=== PATIENT | female | born 1950 | race Caucasian/White ===

== ENCOUNTER 2016-09-26 09:01 | Outpatient (CLI) | payer MEDICARE, OTHER | END 2016-09-26 09:02 | disposition home or self-care (01) | DX: E78.00 Pure hypercholesterolemia, unspecified (principal); E03.9 Hypothyroidism, unspecified; I10 Essential (primary) hypertension ==

== ENCOUNTER 2016-10-19 15:37 | Outpatient (CLI) | payer MEDICARE, OTHER | END 2016-10-19 15:38 | disposition home or self-care (01) | DX: M47.892 Other spondylosis, cervical region (principal) ==

== ENCOUNTER 2016-10-23 12:15 | Outpatient (CLI) | payer MEDICARE, OTHER | END 2016-10-23 12:16 | disposition home or self-care (01) | DX: Z12.31 Encounter for screening mammogram for malignant neoplasm of breast (principal) ==

== ENCOUNTER 2017-01-20 14:18 | Outpatient (CLI) | payer MEDICARE, OTHER ==
--- NOTE | 2017-01-20 16:32 | Ultrasound Report ---
ULTRASOUND OF LEFT FOREARM: 01/20/2017 CLINICAL INDICATION: Palpable abnormality. TECHNIQUE: Real-time scanning was performed with sales and marketing representative static images obtained. FINDINGS: Ultrasound of the region of the palpable abnormality identified by the patient was perform ed. Unremarkable subcutaneous fat and musculature are seen. No discrete solid or cystic mass is identifie d. No sonographically suspicious findings are appreciated. IMPRESSION: NO SONOGRAPHIC CORRELATE TO THE PALPABLE ABNORMALITY. JOB #: [id number] EXT JOB #:[id number]
== END 2017-01-20 14:19 | disposition home or self-care (01) ==
LOC: DI 14:18
PROVIDERS: ATTEND Physician Assistant Medical
DX: R22.32 Localized swelling, mass and lump, left upper limb (principal)
CPT/HCPCS: 76882

== ENCOUNTER 2018-04-29 09:37 | Outpatient (CLI) | payer MEDICARE, OTHER ==
[2018-04-29 13:12] LABS: BASOPHILS # (AUTO) 0.1 10^3/uL (0.0-0.1); BASOPHILS % (AUTO) 0.9 %; EOSINOPHILS # (AUTO) 0.3 10^3/uL (0.0-0.7); EOSINOPHILS % (AUTO) 4.7 %; HGB - HEMOGLOBIN 14.6 g/dL (12.0-16.0); LYMPHOCYTES % (AUTO) 30.3 %; MEAN CORPUSCULAR HEMOGLOBIN 29.8 pg (27.0-31.0); MEAN CORPUSCULAR HGB CONC 33.8 g/dL (32.0-36.0); MEAN CORPUSCULAR VOLUME 88.1 fL (81.0-99.0); MEAN PLATELET VOLUME 7.9 fL (7.9-10.8); MONOCYTES # (AUTO) 0.5 10^3/uL (0.0-1.0); MONOCYTES % (AUTO) 7.7 %; NEUTROPHILS # (AUTO) 3.8 10^3/uL (1.5-6.6); NEUTROPHILS % (AUTO) 56.4 %; PLT - PLATELET COUNT 358 10^3/uL (130-450); RED BLOOD COUNT 4.91 10^6/uL (4.20-5.40); RED CELL DISTRIBUTION WIDTH 14.1 % (12.0-15.0); WHITE BLOOD COUNT 6.7 x10^3/uL (4.8-10.8)
[2018-04-29 13:45] LABS: ALBUMIN 4.2 g/dL (3.2-5.5); ALBUMIN/GLOBULIN RATIO 1.6 (1.0-2.2); BILIRUBIN,TOTAL 0.6 mg/dL (0.2-1.0); CALCIUM 9.8 mg/dL (8.5-10.3); CREATININE 0.5 mg/dL (0.4-1.0); TOTAL PROTEIN 6.9 g/dL (6.7-8.2)
== END 2018-04-29 09:38 | disposition home or self-care (01) ==
LOC: LAB.WCP 09:37
PROVIDERS: ATTEND Family Medicine
DX: M79.604 Pain in right leg (principal)
CPT/HCPCS: 36415; 80053; 85025; 85379

== ENCOUNTER 2018-04-29 13:38 | Emergency (ER) | payer MEDICARE, OTHER ==
--- NOTE | 2018-04-29 15:39 | ED Physician Documentation ---
PD HPI LOWER EXT INJURY - Stated complaint Stated Complaint: RT LEG PX/DR. JOHNSON SENT/ELEVATED D DIMER - Chief complaint Chief Complaint: General - History obtained from History obtained from: Patient PD PAST MEDICAL HISTORY - Past Medical History Cardiovascular: Hypertension, High cholesterol Endocrine/Autoimmune: HyPOthyroidism Psych: Anxiety Musculoskeletal: Osteoarthritis - Past Surgical History Past Surgical History: Yes General: Cholecystectomy Ortho: ACL reconstruction, Shoulder arthroplasty HEENT: Tonsil/Adenoidectomy - Present Medications Home Medications: Ambulatory Orders Medication Instructions Recorded Confirmed Aspirin [Aspir 81] 81 mg PO DAILY 06/17/14 06/17/14 Fenofibrate Nanocrystallized 145 mg PO DAILY 06/17/14 06/17/14 [Tricor] Gluc Kellogg/Chondro Kellogg A/Vit C/Mn 1,500 mg PO DAILY 06/17/14 06/17/14 [Glucosamine 1,500 Complex Cp] Levomefolate/Algal Oil 7.5 mg PO DAILY 06/17/14 06/17/14 [Deplin-Algal Oil 7.5 mg Cap] Levothyroxine Sodium [Levoxyl] 100 mcg PO DAILY 06/17/14 06/17/14 Verapamil [Calan] 240 mg PO BID 06/17/14 06/17/14 oxyCODONE [Roxicodone] 5 g PO BID PRN 06/17/14 06/17/14 Baclofen 04/29/18 04/29/18 Melatonin 04/29/18 Progesterone,Micronized 04/29/18 [Progesterone] Zolpidem [Ambien] 04/29/18 - Allergies Allergies/Adverse Reactions: Allergies Allergy/AdvReac Type Severity Reaction Status Date / Time Sulfa (Sulfonamide Allergy Hives Verified 04/29/18 14:03 Antibiotics) dexamethasone AdvReac Anxiety Verified 04/29/18 14:03 eszopiclone [From Lunesta] AdvReac Anxiety Verified 04/29/18 14:03 propranolol AdvReac Anxiety Verified 04/29/18 14:03 quetiapine fumarate * AdvReac Anxiety Verified 04/29/18 14:03 [From Seroquel] topiramate [From Topamax] AdvReac Anxiety Verified 04/29/18 14:03 - Social History Does the pt smoke?: No Smoking Status: Never smoker Does the pt drink ETOH?: No Does the pt have substance abuse?: No - Immunizations Immunizations are current?: Yes - POLST Patient has POLST: Yes Results - Vitals Vitals: Vital Signs - 24 hr 04/29/18 04/29/18 14:00 15:43 Temperature 37.2 C Heart Rate 78 68 Respiratory 16 16 Rate Blood Pressure 148/80 H 139/82 H O2 Saturation 97 99 Oxygen O2 Source Room air Departure - Departure Disposition: 66 [facility] DC/Xfer Clinical Impression: Closed right hip fracture Qualifiers: Encounter type: initial encounter Qualified Code(s): S72.001A - Fracture of unspecified part of neck of right femur, initial encounter for closed fracture Condition: Good
--- NOTE | 2018-04-29 16:29 | ED Physician Documentation ---
PD HPI LOWER EXT INJURY - Stated complaint Stated Complaint: RT LEG PX/DR. JOHNSON SENT/ELEVATED D DIMER - Chief complaint Chief Complaint: General - History obtained from History obtained from: Patient - History of Present Illness PD HPI LOW EXT INJURY LOCATION: Right, Thigh (noted some pain and tenderness lateral distal thigh. Seen by PMD and had office D-demier test that was elevated. Sent to ER for U/S.) Type of injury: No: Fall, Twist, Blunt / blow Timing - onset: Yesterday Timing - duration: Days (2) Timing - details: Gradual onset Worsened by: Palpating. No: Moving Associated symptoms: No: Weakness, Numbness, Swelling Review of Systems Constitutional: denies: Fever, Chills Cardiac: denies: Chest pain / pressure, Palpitations Respiratory: denies: Dyspnea, Cough GI: denies: Nausea, Vomiting Skin: reports: Other (hiostory of varicose veins on legs). denies: Rash, Lesions PD PAST MEDICAL HISTORY - Past Medical History Cardiovascular: Hypertension, High cholesterol Endocrine/Autoimmune: HyPOthyroidism Psych: Anxiety Musculoskeletal: Osteoarthritis - Past Surgical History Past Surgical History: Yes General: Cholecystectomy Ortho: ACL reconstruction, Shoulder arthroplasty HEENT: Tonsil/Adenoidectomy - Present Medications Home Medications: Ambulatory Orders Medication Instructions Recorded Confirmed Aspirin [Aspir 81] 81 mg PO DAILY 06/17/14 04/29/18 Fenofibrate Nanocrystallized 145 mg PO DAILY 06/17/14 04/29/18 [Tricor] Gluc Kellogg/Chondro Kellogg A/Vit C/Mn 1,500 mg PO DAILY 06/17/14 06/17/14 [Glucosamine 1,500 Complex Cp] Levothyroxine Sodium [Levoxyl] 100 mcg PO DAILY 06/17/14 04/29/18 oxyCODONE [Roxicodone] 5 g PO BID PRN 06/17/14 06/17/14 Baclofen 10 mg PO DAILY 04/29/18 04/29/18 Baclofen [Lioresal] 20 mg PO QPM 04/29/18 04/29/18 Levomefolate/Algal Oil 1 each PO DAILY 04/29/18 04/29/18 [Deplin-Algal Oil 7.5 mg Cap] Lidocaine Patch 5% [Lidoderm Patch] 1 - 3 each TOP DAILY 04/29/18 04/29/18 Melatonin 3 - 9 mg PO QPM 04/29/18 04/29/18 Progesterone,Micronized 100 mg PO DAILY 04/29/18 04/29/18 [Progesterone] Verapamil HCl [Verapamil ER] 240 mg PO DAILY 04/29/18 04/29/18 Zolpidem [Ambien] 5 mg PO QPM 04/29/18 04/29/18 raNITIdine [Zantac] 150 mg PO BID 04/29/18 04/29/18 - Allergies Allergies/Adverse Reactions: Allergies Allergy/AdvReac Type Severity Reaction Status Date / Time Sulfa (Sulfonamide Allergy Hives Verified 04/29/18 14:03 Antibiotics) dexamethasone AdvReac Anxiety Verified 04/29/18 14:03 eszopiclone [From Lunesta] AdvReac Anxiety Verified 04/29/18 14:03 propranolol AdvReac Anxiety Verified 04/29/18 14:03 quetiapine fumarate * AdvReac Anxiety Verified 04/29/18 14:03 [From Seroquel] topiramate [From Topamax] AdvReac Anxiety Verified 04/29/18 14:03 - Social History Does the pt smoke?: No Smoking Status: Never smoker Does the pt drink ETOH?: No Does the pt have substance abuse?: No - Immunizations Immunizations are current?: Yes - POLST Patient has POLST: Yes PD ED PE NORMAL - Vitals Vital signs reviewed: Yes - General General: Alert and oriented X 3, No acute distress, Well developed/nourished - Back Back: No CVA TTP, No spinal TTP - Derm Derm: Normal color, Warm and dry - Extremities Extremities: Other (right lateral lower thigh with some tenderness and firm area in linearity c/w superficial phleibits. No redness. no skin sores nor rash. Medial thigh and calf not tender. ) - Neuro Neuro: No motor deficit, No sensory deficit Results - Vitals Vitals: Oxygen O2 Source Room air - Rads (name of study) duplex right leg Radiology: Prelim report reviewed (no DVT) PD MEDICAL DECISION MAKING - ED course Complexity details: considered differential (lateral thigh with superficial exam c/w phlebitis. No calf nor medial thigh tenderness and U/S shows no DVT. ), d/w patient Departure - Departure Disposition: 01 Home, Self Care Clinical Impression: Superficial phlebitis Condition: Stable Record reviewed to determine appropriate education?: Yes Instructions: ED Phlebitis Superficial Follow-Up: Jas Johnson MD [Provider Admit Priv/Credential] - Comments: Your ultrasound is normal without any signs of deep vein clots. On exam this feels like a inflammation and possible clotting of the superficial veins which is treated as him not serious problem. This can be treated locally with heat to the area periodically. He can use some Tylenol or anti-inflammatories short- term. This should improve over the next few days or so. Discharge Date/Time: 04/29/18 18:13
[2018-04-29 17:42] VITALS: BP 153/72
--- NOTE | 2018-04-29 18:02 | Ultrasound Report ---
Reason: lateral thigh pain for few days Procedure Date: 04/29/2018 Accession Number: [id number] / [id number] Procedure: US - Duplex Ext Veins Right CPT Code: FULL RESULT: EXAM: RIGHT LOWER EXTREMITY VENOUS ULTRASOUND EXAM DATE: 04/29/2018 05:46 PM. CLINICAL HISTORY: Lateral thigh pain for few days. COMPARISON: None. TECHNIQUE: Real-time sonographic vascular imaging was performed by the export freight manager through the lower extremity utilizing both color-flow and Doppler spectral analysis. Multiple u.s. representative static images were saved for review. FINDINGS: Common Femoral Vein (CFV): Normal. CFV-GSV Junction: Normal. Profunda Femoral Vein (PFV): Normal. Femoral Vein (FV) Prox: Normal. Femoral Vein (FV) Mid: Normal. Femoral Vein (FV) Dist: Normal. Popliteal Vein: Normal. Posterior Tibial Veins: Normal. Peroneal Veins: Normal. Other: None. IMPRESSION: No evidence for deep venous thrombosis. RADIA
== END 2018-04-29 18:13 | disposition home or self-care (01) ==
LOC: ED 13:38
DX: I80.01 Phlebitis and thrombophlebitis of superficial vessels of right lower extremity (principal); M79.604 Pain in right leg; E78.00 Pure hypercholesterolemia, unspecified; I10 Essential (primary) hypertension; E03.9 Hypothyroidism, unspecified; Z79.82 Long term (current) use of aspirin
CPT/HCPCS: 36415; 80053; 85025; 85379; 99283

== ENCOUNTER 2018-05-03 09:28 | Outpatient (CLI) | payer MEDICARE, OTHER ==
--- NOTE | 2018-05-04 09:20 | Mammography Report ---
Reason: SCREENING MAMMO Procedure Date: 05/03/2018 Accession Number: [id number] / [id number] Procedure: GISELA - Screening Mammo w/Coleman CPT Code: FULL RESULT: EXAM: Screening Mammo w/Coleman DATE: 05/03/2018 9:58 AM CLINICAL HISTORY: 67 year-old nulliparous female for screening. TECHNIQUE: Bilateral CC and MLO views were obtained. COMPARISON: 10/23/2016, 09/14/2014, 09/14/2013, 01/29/2012. FINDINGS: The breasts demonstrate diffuse fatty replacement bilaterally. No suspicious masses, clustered microcalcifications, or regions of architectural distortion are identified. IMPRESSION: Negative examination RECOMMENDATION: Routine annual screening unless otherwise clinically indicated. BIRADS CATEGORY 1: Negative STANDARD QUALIFYING STATEMENTS: 1. This examination was not reviewed with the aid of Computer-Aided Detection (CAD). 2. A negative or benign imaging report should not delay biopsy if clinically suspicious findings are present. Consider surgical consultation if warrented. More than 5% of cancers are not identified by imaging. 3. Dense breasts may obscure an underlying neoplasm. 4. This examination was reviewed with the aid of 3D breast imaging (tomosynthesis).
== END 2018-05-03 09:29 | disposition home or self-care (01) ==
LOC: DI 09:28
DX: Z12.31 Encounter for screening mammogram for malignant neoplasm of breast (principal)
CPT/HCPCS: 77063; 77067

== ENCOUNTER 2018-05-11 17:00 | Outpatient (CLI) | payer MEDICARE, OTHER | END 2018-05-11 17:01 | LOC: LAB.R 17:00 | PROVIDERS: ATTEND Physician Assistant Medical | DX: R31.9 Hematuria, unspecified (principal) | CPT/HCPCS: 87086 ==

== ENCOUNTER 2018-05-26 08:00 | Outpatient (CLI) | payer MEDICARE, OTHER ==
[2018-05-26 19:47] LABS: BILIRUBIN,URINE NEGATIVE (NEGATIVE); GLUCOSE, URINE (UA) NEGATIVE (NEGATIVE); KETONES,URINE (UA) NEGATIVE (NEGATIVE); LEUKOCYTE ESTERASE, URINE NEGATIVE (NEGATIVE); NITRITE,URINE NEGATIVE (NEGATIVE); OCCULT BLOOD,URINE TRACE-LYSE (NEGATIVE); PH,URINE 7.5 PH (5.0-7.5); PROTEIN,URINE NEGATIVE (NEGATIVE); UROBILINOGEN,URINE 0.2 (NORMAL) E.U./dL (NORMAL)
[2018-05-26 20:00] LABS: AMORPHOUS SEDIMENT,UR Moderate /LPF; BACTERIA,URINE None Seen /HPF (None Seen); CLARITY,URINE HAZY (CLEAR); RBC,URINE None Seen /HPF (0-5); SQUAMOUS EPITHELIAL CELL,UR NONE SEEN (<= Few)
== END 2018-05-26 23:59 | disposition home or self-care (01) ==
LOC: LAB.WCP 08:00
PROVIDERS: ATTEND Physician Assistant Medical
DX: R31.9 Hematuria, unspecified (principal)
CPT/HCPCS: 81001; 87086

== ENCOUNTER 2018-07-12 08:34 | Day surgery (SDC) | payer MEDICARE, OTHER ==
[2018-07-12] MEDS ORDERED: LACTATED RINGERS 1,000 ML IV ONE (09:02)
[2018-07-12] MEDS ORDERED: fentaNYL 250 MCG/5 ML VIAL IVP ONE (09:50)
[2018-07-12] MEDS ORDERED: MIDAZOLAM 2 MG/2 ML VIAL IVP ONE (09:50)
[2018-07-12 11:19] VITALS: BP 156/69
--- NOTE | 2018-07-12 11:54 | PROCEDURE REPORT ---
DATE OF SERVICE: 07/12/2018 Physician: Ced Vaughan MD PREOPERATIVE DIAGNOSIS: Screening colonoscopy. POSTOPERATIVE DIAGNOSIS: Normal colonoscopy. PROCEDURE: Colonoscopy. INDICATION PROCEDURE: The patient is a 68-year-old woman who presented to clinic requesting a screen ing colonoscopy. Her last one was over 10 years ago. PROCEDURE IN DETAIL: The risks and benefits were explained to the patient, and she agreed to the pro cedure. She was taken to the operating room, given sedation, a timeout was performed and everyone in the room agreed with the procedure. We began by inserting a well-lubricated colonoscope in the anal cavity. We encountered a marginally to a poorly prepped colon; however, we were able to advance all the way to the cecum without too much difficulty. The appendiceal orifice was identified. The scop e was then slowly withdrawn after insufflating the colon. I did take a lot of time to clean out resi dual stool in the colon; however, we were able to do an adequate, although suboptimal examination of the colon mucosa. No abnormalities were seen. There were no masses, polyps, diverticula or internal hemorrhoids on retroflexion. The scope was then completely withdrawn and procedure terminated. The patient tolerated the procedure well, was taken to recovery in stable condition. SPECIMEN: None. COMPLICATIONS: None. PLAN: Plan is for a repeat colonoscopy in 10 years. TD: 07/12/2018 09:47
== END 2018-07-12 08:35 | disposition home or self-care (01) ==
LOC: SDS 08:34
PROVIDERS: ATTEND Surgery
PROC: 0DBL8ZZ Excision of Transverse Colon, Via Natural or Artificial Opening Endoscopic (ICD-10-PCS; principal; 2018-07-12 09:45)
DX: Z12.11 Encounter for screening for malignant neoplasm of colon (principal); D12.3 Benign neoplasm of transverse colon; I10 Essential (primary) hypertension; E66.9 Obesity, unspecified; Z68.39 Body mass index [BMI] 39.0-39.9, adult
CPT/HCPCS: 45380; J3010; J7120

== ENCOUNTER 2018-08-15 17:00 | Outpatient (CLI) | payer MEDICARE, OTHER ==
[2018-08-16 11:16] LABS: BILIRUBIN,URINE NEGATIVE (NEGATIVE); GLUCOSE, URINE (UA) NEGATIVE (NEGATIVE); KETONES,URINE (UA) NEGATIVE (NEGATIVE); LEUKOCYTE ESTERASE, URINE SMALL (NEGATIVE); NITRITE,URINE NEGATIVE (NEGATIVE); OCCULT BLOOD,URINE TRACE-INTA (NEGATIVE); PH,URINE 5.5 PH (5.0-7.5); PROTEIN,URINE NEGATIVE (NEGATIVE); UROBILINOGEN,URINE 0.2 (NORMAL) E.U./dL (NORMAL)
[2018-08-16 11:29] LABS: CLARITY,URINE HAZY (CLEAR); RBC,URINE 0-5 /HPF (0-5)
[2018-08-16 11:30] LABS: BACTERIA,URINE Few /HPF (None Seen); MUCUS,URINE Moderate Strands; SQUAMOUS EPITHELIAL CELL,UR FEW Squamous (<= Few)
== END 2018-08-15 23:59 | disposition home or self-care (01) ==
LOC: LAB.R 17:00
PROVIDERS: ATTEND Physician Assistant Medical
DX: R31.9 Hematuria, unspecified (principal)
CPT/HCPCS: 81001; 87086

== ENCOUNTER 2018-09-09 15:30 | Emergency (ER) | payer MEDICARE, OTHER ==
[2018-09-09 15:58] VITALS: BP 134/85
--- NOTE | 2018-09-09 16:17 | ED Physician Documentation ---
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 HEENT: Cataracts, Tonsil/Adenoidectomy Derm: Skin cancer surgery - Present Medications Home Medications: Ambulatory Orders Medication Instructions Recorded Confirmed Aspirin [Aspir 81] 81 mg PO DAILY 06/17/14 07/12/18 Fenofibrate Nanocrystallized 145 mg PO DAILY 06/17/14 07/12/18 [Tricor] Gluc Kellogg/Chondro Kellogg A/Vit C/Mn 1,500 mg PO DAILY 06/17/14 07/12/18 [Glucosamine 1,500 Complex Cp] Levothyroxine Sodium [Levoxyl] 100 mcg PO DAILY 06/17/14 07/12/18 oxyCODONE [Roxicodone] 5 g PO QID 06/17/14 07/12/18 Baclofen 10 mg PO DAILY 04/29/18 07/12/18 Baclofen [Lioresal] 20 mg PO QPM 04/29/18 07/12/18 Levomefolate/Algal Oil 1 each PO DAILY 04/29/18 07/12/18 [Deplin-Algal Oil 7.5 mg Cap] Lidocaine Patch 5% [Lidoderm Patch] 1 - 3 each TOP DAILY 04/29/18 07/12/18 Melatonin 3 - 9 mg PO QPM 04/29/18 07/12/18 Progesterone,Micronized 100 mg PO DAILY 04/29/18 07/12/18 [Progesterone] Verapamil HCl [Verapamil ER] 240 mg PO DAILY 04/29/18 07/12/18 Zolpidem [Ambien] 5 mg PO QPM 04/29/18 07/12/18 - Allergies Allergies/Adverse Reactions: Allergies Allergy/AdvReac Type Severity Reaction Status Date / Time Sulfa (Sulfonamide Allergy Hives Verified 04/29/18 14:03 Antibiotics) dexamethasone AdvReac Anxiety Verified 04/29/18 14:03 eszopiclone [From Lunesta] AdvReac Anxiety Verified 04/29/18 14:03 propranolol AdvReac Anxiety Verified 04/29/18 14:03 quetiapine fumarate * AdvReac Anxiety Verified 04/29/18 14:03 [From Seroquel] topiramate [From Topamax] AdvReac Anxiety Verified 04/29/18 14:03 - Social History Does the pt smoke?: No Smoking Status: Never smoker Does the pt drink ETOH?: No Does the pt have substance abuse?: No - Immunizations Immunizations are current?: Yes - POLST Patient has POLST: Yes PD ED PE NORMAL - Vitals Vital signs reviewed: Yes - General General: Alert and oriented X 3, No acute distress - HEENT HEENT: PERRL - Neck Neck: Supple, no meningeal sign - Cardiac Cardiac: RRR, No murmur - Respiratory Respiratory: Clear bilaterally - Abdomen Abdomen: Normal bowel sounds, Soft, Non tender, Non distended - Derm Derm: Warm and dry - Extremities Extremities: No deformity - Neuro Neuro: Alert and oriented X 3 - Psych Psych: Normal mood, Normal affect Results - Vitals Vitals: Vital Signs - 24 hr 09/09/18 15:56 Temperature 37.1 C Heart Rate 86 Respiratory 20 Rate Blood Pressure 134/85 H O2 Saturation 98 Oxygen O2 Source Room air
--- NOTE | 2018-09-09 16:46 | ED Physician Documentation ---
PD HPI URI - Stated complaint Stated Complaint: GREENFIELD/SORE THROAT/STIFF NECK - Chief complaint Chief Complaint: Heent - History obtained from History obtained from: Patient - History of Present Illness Timing - onset: Yesterday Timing duration: Days (2) Timing details: Abrupt onset, Still present Associated symptoms: Fever, Nasal congestion, Sore throat, Dry cough, Other (headache and nausea) Improves by: No: Rest Similar symptoms before: Has not had sx before Recently seen: Not recently seen Review of Systems Constitutional: reports: Fever, Chills, Myalgias, Fatigue Nose: reports: Congestion Throat: reports: Sore throat Cardiac: denies: Chest pain / pressure Respiratory: reports: Cough. denies: Dyspnea, Wheezing GI: reports: Nausea. denies: Abdominal Pain, Vomiting, Diarrhea Neurologic: reports: Generalized weakness, Headache. 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 HEENT: Cataracts, Tonsil/Adenoidectomy Derm: Skin cancer surgery - Present Medications Home Medications: Ambulatory Orders Medication Instructions Recorded Confirmed Aspirin [Aspir 81] 81 mg PO DAILY 06/17/14 07/12/18 Fenofibrate Nanocrystallized 145 mg PO DAILY 06/17/14 07/12/18 [Tricor] Gluc Kellogg/Chondro Kellogg A/Vit C/Mn 1,500 mg PO DAILY 06/17/14 07/12/18 [Glucosamine 1,500 Complex Cp] Levothyroxine Sodium [Levoxyl] 100 mcg PO DAILY 06/17/14 07/12/18 oxyCODONE [Roxicodone] 5 g PO QID 06/17/14 07/12/18 Baclofen 10 mg PO DAILY 04/29/18 07/12/18 Baclofen [Lioresal] 20 mg PO QPM 04/29/18 07/12/18 Levomefolate/Algal Oil 1 each PO DAILY 04/29/18 07/12/18 [Deplin-Algal Oil 7.5 mg Cap] Lidocaine Patch 5% [Lidoderm Patch] 1 - 3 each TOP DAILY 04/29/18 07/12/18 Melatonin 3 - 9 mg PO QPM 04/29/18 07/12/18 Progesterone,Micronized 100 mg PO DAILY 04/29/18 07/12/18 [Progesterone] Verapamil HCl [Verapamil ER] 240 mg PO DAILY 04/29/18 07/12/18 Zolpidem [Ambien] 5 mg PO QPM 04/29/18 07/12/18 Albuterol Sulf [Ventolin Hfa 2 - 3 puffs INH Q4HR PRN #1 inhaler 09/09/18 Inhaler] Benzonatate [Tessalon Perle] 100 - 200 mg PO TID PRN #30 capsule 09/09/18 HYDROmorphone [Dilaudid] 2 mg PO Q6H PRN #12 tablet 09/09/18 Ondansetron Odt [Zofran] 4 mg TL Q6H PRN #10 tablet 09/09/18 Oseltamivir [Tamiflu] 75 mg PO BID #10 capsule 09/09/18 - Allergies Allergies/Adverse Reactions: Allergies Allergy/AdvReac Type Severity Reaction Status Date / Time Sulfa (Sulfonamide Allergy Hives Verified 04/29/18 14:03 Antibiotics) dexamethasone AdvReac Anxiety Verified 04/29/18 14:03 eszopiclone [From Lunesta] AdvReac Anxiety Verified 04/29/18 14:03 propranolol AdvReac Anxiety Verified 04/29/18 14:03 quetiapine fumarate * AdvReac Anxiety Verified 04/29/18 14:03 [From Seroquel] topiramate [From Topamax] AdvReac Anxiety Verified 04/29/18 14:03 - Social History Does the pt smoke?: No Smoking Status: Never smoker Does the pt drink ETOH?: No Does the pt have substance abuse?: No - Immunizations Immunizations are current?: Yes - POLST Patient has POLST: Yes PD ED PE NORMAL - Vitals Vital signs reviewed: Yes - General General: Alert and oriented X 3, No acute distress, Well developed/nourished - HEENT HEENT: PERRL (not light sensntive), Ears normal, Pharynx benign - Neck Neck: Supple, no meningeal sign, No adenopathy - Cardiac Cardiac: RRR, No murmur - Respiratory Respiratory: Clear bilaterally - Abdomen Abdomen: Soft, Non tender - Derm Derm: Normal color, Warm and dry - Extremities Extremities: No tenderness to palpate, Normal ROM s pain - Neuro Neuro: Alert and oriented X 3, No motor deficit, Normal speech Results - Vitals Vitals: Vital Signs - 24 hr 09/09/18 09/09/18 09/09/18 15:56 17:03 18:27 Temperature 37.1 C Heart Rate 86 83 Respiratory 20 18 Rate Blood Pressure 134/85 H O2 Saturation 98 98 Oxygen O2 Source Room air - Labs Labs: Microbiology 09/09/18 16:00 Group A Strep Throat Culture - Final Throat MIXED OROPHARYNGEAL KAYLIE PRESENT. NO BETA STREP PRESENT IN CULTURE. Laboratory Tests 09/09/18 09/09/18 16:00 16:00 Influenza A (Rapid) POSITIVE H Influenza B (Rapid) Negative Group A Strep Rapid Negative PD MEDICAL DECISION MAKING - ED course Complexity details: considered differential (chronic pain with regular pain meds so some tolerance. Has added pains with headache and cough from flu. Short term added meds along with meds for flu. She does not look meningitic. ), d/w patient Departure - Departure Disposition: 01 Home, Self Care Clinical Impression: Influenza A, Throat pain Headache Qualifiers: Headache type: unspecified Headache chronicity pattern: acute headache Intractability: not intractable Qualified Code(s): R51 - Headache Chronic back pain Qualifiers: Back pain location: low back pain Back pain laterality: unspecified Sciatica presence: unspecified whether sciatica present Qualified Code(s): M54.5 - Low back pain Condition: Stable Record reviewed to determine appropriate education?: Yes Instructions: ED Flu Follow-Up: Naye Webster PA-C [Primary Care Provider] - oDnald Alfaro ARNP [Physician No Access] - Prescriptions: Albuterol Sulf [Ventolin Hfa Inhaler] 2 - 3 puffs INH Q4HR PRN #1 inhaler PRN Reason: Shortness Of Air/Wheezing Benzonatate [Tessalon Perle] 100 - 200 mg PO TID PRN #30 capsule PRN Reason: Cough HYDROmorphone [Dilaudid] 2 mg PO Q6H PRN #12 tablet PRN Reason: Headache Ondansetron Odt [Zofran] 4 mg TL Q6H PRN #10 tablet PRN Reason: Nausea / Vomiting Oseltamivir [Tamiflu] 75 mg PO BID #10 capsule Comments: Use albuterol inhaler 2 puffs to 3 puffs 4 times a day for the next 7-10 days and extra day times if needed for wheezing and cough. Tessalon if needed for cough suppression. Tamiflu to try to reduce the flu symptoms. Continue usual medications. For the added pains of acute headache and sore throat from the flu, add hydromorphone pain medicine supplementally 4 times a day if needed for the next few days. At that point he will return to just your usual medications. Anything further would need to be in conjunction with your pain clinic but I feel it appropriate to add medicines for a few days due to acute illness. Discharge Date/Time: 09/09/18 18:27
[2018-09-09] MEDS ORDERED: BENZONATATE 100 MG CAPSULE PO STA (17:01)
[2018-09-09] MEDS ORDERED: HYDROmorphone 2 MG/ML VIAL IM STA (17:01)
[2018-09-09] MEDS ORDERED: ONDANSETRON ODT 4 MG TABLET TL STA (17:01)
[2018-09-09] MEDS ORDERED: OSELTAMIVIR 75 MG CAPSULE PO STA (17:02)
[2018-09-09] MEDS ORDERED: ALBUTEROL NEB 2.5 MG/3 ML INH STA (17:03)
[2018-09-09] MEDS ORDERED: DEXAMETHASONE 10 MG/ML VIAL PO STA (17:11)
== END 2018-09-09 18:27 | disposition home or self-care (01) ==
LOC: ED 15:30
DX: J10.1 Influenza due to other identified influenza virus with other respiratory manifestations (principal); R07.0 Pain in throat; R51 Headache; M54.5 Low back pain; G89.29 Other chronic pain; I10 Essential (primary) hypertension; Z79.82 Long term (current) use of aspirin
CPT/HCPCS: 87070; 87275; 87276; 87430; 94640; 96372; 99283; A9270; J1170; Q0162

== ENCOUNTER 2018-10-29 17:47 | Outpatient (CLI) | payer MEDICARE, OTHER ==
--- NOTE | 2018-10-31 09:13 | XRAY Report ---
Reason: BACK PAIN,THORACIC REGION Procedure Date: 10/29/2018 Accession Number: [id number] / [id number] Procedure: XR - Thoracic Spine 3 View CPT Code: FULL RESULT: EXAM: THORACIC SPINE RADIOGRAPHY EXAM DATE: 10/29/2018 06:05 PM. CLINICAL HISTORY: Back pain COMPARISON: None. TECHNIQUE: 3 views. FINDINGS: Alignment: Upper thoracic curve convex left 12 degrees. Mid thoracic curve convex right 8 degrees apex T6-T7. Thoracolumbar junction curve convex left 12 degrees apex at T10-T11. Bones: No fractures or bone lesions. Disks: Minor scattered disk space narrowing. Soft Tissues: Unremarkable. Surgical clips right upper quadrant. IMPRESSION: Thoracic scoliosis as above without superimposed acute findings. RADIA
== END 2018-10-29 17:48 | disposition home or self-care (01) ==
LOC: DI 17:47
PROVIDERS: ATTEND Physician Assistant Medical
DX: M41.84 Other forms of scoliosis, thoracic region (principal); M54.6 Pain in thoracic spine
CPT/HCPCS: 72072

== ENCOUNTER 2018-11-11 11:46 | Outpatient (CLI) | payer MEDICARE, OTHER | END 2018-11-11 23:59 | disposition home or self-care (01) | LOC: LAB.F 11:46 | PROVIDERS: ATTEND Physician Assistant Medical | DX: E03.9 Hypothyroidism, unspecified (principal) | CPT/HCPCS: 36415; 84443 ==

== ENCOUNTER 2018-12-13 13:51 | Outpatient (CLI) | payer MEDICARE, OTHER ==
[2018-12-13 18:23] LABS: CALCIUM 9.4 mg/dL (8.5-10.3); CREATININE 0.5 mg/dL (0.4-1.0)
== END 2018-12-13 13:52 | disposition home or self-care (01) ==
LOC: LAB.F 13:51
PROVIDERS: ATTEND Psychiatry & Neurology Psychiatry
DX: F31.9 Bipolar disorder, unspecified (principal); Z51.81 Encounter for therapeutic drug level monitoring
CPT/HCPCS: 36415; 80048

== ENCOUNTER 2019-03-10 21:47 | Emergency (ER) | payer MEDICARE, OTHER ==
[2019-03-10 21:54] VITALS: BP 146/93
--- NOTE | 2019-03-10 22:07 | ED Physician Documentation ---
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 It happened about 7 hours after instilling her brimonidine drops. She is also on Xiidra. Vision is unchanged. No eye trauma.) Review of Systems Constitutional: denies: Fever, Chills Eyes: reports: Photophobia, Discharge, Irritation. 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 HEENT: Cataracts, Tonsil/Adenoidectomy Derm: Skin cancer surgery - Present Medications Home Medications: Ambulatory Orders Medication Instructions Recorded Confirmed Aspirin [Aspir 81] 81 mg PO DAILY 06/17/14 07/12/18 Fenofibrate Nanocrystallized 145 mg PO DAILY 06/17/14 07/12/18 [Tricor] Gluc Kellogg/Chondro Kellogg A/Vit C/Mn 1,500 mg PO DAILY 06/17/14 07/12/18 [Glucosamine 1,500 Complex Cp] Levothyroxine Sodium [Levoxyl] 100 mcg PO DAILY 06/17/14 07/12/18 oxyCODONE [Roxicodone] 5 g PO QID 06/17/14 07/12/18 Baclofen 10 mg PO DAILY 04/29/18 07/12/18 Baclofen [Lioresal] 20 mg PO QPM 04/29/18 07/12/18 Levomefolate/Algal Oil 1 each PO DAILY 04/29/18 07/12/18 [Deplin-Algal Oil 7.5 mg Cap] Lidocaine Patch 5% [Lidoderm Patch] 1 - 3 each TOP DAILY 04/29/18 07/12/18 Melatonin 3 - 9 mg PO QPM 04/29/18 07/12/18 Progesterone, Micronized 100 mg PO DAILY 04/29/18 07/12/18 [Progesterone] Verapamil HCl [Verapamil ER] 240 mg PO DAILY 04/29/18 07/12/18 Zolpidem [Ambien] 5 mg PO QPM 04/29/18 07/12/18 Albuterol Sulf [Ventolin Hfa 2 - 3 puffs INH Q4HR PRN #1 inhaler 09/09/18 Inhaler] Benzonatate [Tessalon Perle] 100 - 200 mg PO TID PRN #30 capsule 09/09/18 HYDROmorphone [Dilaudid] 2 mg PO Q6H PRN #12 tablet 09/09/18 Ondansetron Odt [Zofran] 4 mg TL Q6H PRN #10 tablet 09/09/18 Oseltamivir [Tamiflu] 75 mg PO BID #10 capsule 09/09/18 Brimonidine 0.1% Ophth Drops 1 drops OPTH BID 03/10/19 03/10/19 [Alphagan P 0.1% Ophth Drops] Lifitegrast [Xiidra] 1 each OP 03/10/19 03/10/19 - Allergies Allergies/Adverse Reactions: Allergies Allergy/AdvReac Type Severity Reaction Status Date / Time Sulfa (Sulfonamide Allergy Hives Verified 03/10/19 21:56 Antibiotics) dexamethasone AdvReac Anxiety Verified 03/10/19 21:56 eszopiclone [From Lunesta] AdvReac Anxiety Verified 03/10/19 21:56 propranolol AdvReac Anxiety Verified 03/10/19 21:56 quetiapine fumarate * AdvReac Anxiety Verified 03/10/19 21:56 [From Seroquel] topiramate [From Topamax] AdvReac Anxiety Verified 03/10/19 21:56 - Social History Does the pt smoke?: No Smoking Status: Never smoker Does the pt drink ETOH?: No Does the pt have substance abuse?: No - Immunizations Immunizations are current?: Yes - POLST Patient has POLST: Yes PD ED PE NORMAL - Vitals Vital signs reviewed: Yes - General General: Alert and oriented X 3, No acute distress - HEENT HEENT: PERRL, EOMI, Other (Inferolateral in the left eye there is a corneal abrasion versus early ulcer. Negative Jasmin sign.) - Neck Neck: Supple, no meningeal sign, No bony TTP - Neuro Neuro: Alert and oriented X 3, Normal speech Results - Vitals Vitals: Vital Signs - 24 hr 03/10/19 21:48 Temperature 36 C L Heart Rate 71 Respiratory 18 Rate Blood Pressure 146/93 H O2 Saturation 98 Oxygen O2 Source Room air PD MEDICAL DECISION MAKING - ED course ED course: 68-year-old woman undergoing ophthalmology treatment who presents with a floor seen uptake concerning for early ulcer in the left eye. She is started on every 2 hours Levaquin and I spoke with Camille Felton on-call for her ophthalmology group who will see her tomorrow. Departure - Departure Disposition: 01 Home, Self Care Clinical Impression: Corneal abrasion, left Qualifiers: Encounter type: initial encounter Qualified Code(s): S05.02XA - Injury of conjunctiva and corneal abrasion without foreign body, left eye, initial encounter Condition: Good Record reviewed to determine appropriate education?: Yes Comments: Use the eyedrop every 2 hours until told otherwise, Dr. Felton wants to hear from you tomorrow. Call her in the morning at .
[2019-03-10] MEDS ORDERED: levoFLOXacin 0.5% OPHTH DROPS 5 ML LEFTEYE STA (22:16)
== END 2019-03-10 22:35 | disposition home or self-care (01) ==
LOC: ED 21:47
DX: S05.02XA Injury of conjunctiva and corneal abrasion without foreign body, left eye, initial encounter (principal); X58.XXXA Exposure to other specified factors, initial encounter; I10 Essential (primary) hypertension
CPT/HCPCS: 99282; A9270

== ENCOUNTER 2019-07-03 15:32 | Emergency (ER) | payer MEDICARE, OTHER ==
--- NOTE | 2019-07-03 15:43 | ED Physician Documentation ---
History of Present Illness - Stated complaint Stated Complaint: LT LEG PX - Chief complaint Chief Complaint: Ext Problem - Additonal information Additional information: This is a 69-year-old female who presents with some redness at the inferior portion of incision from left knee replacement. Patient had a knee replacement with Dr. Garcia on 05/02/2019, she has been feeling this fairly well, but she noticed last Wednesday that she began having some redness at the lower aspect of the incision, and this began draining some clear fluid. She is not noticed any pus. She has noticed the redness around that area has been spreading out slight ly, and when she called the orthopedics nurse she was asked to come here for evaluation and likely antibiotics. She denies fever, she does not have increased pain in the knee joint itself, and the only area that is red is distal/inferior aspect of the wound. She is not taking any antibiotics currently. 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 HEENT: Cataracts, Tonsil/Adenoidectomy Derm: Skin cancer surgery - Present Medications Home Medications: Ambulatory Orders Medication Instructions Recorded Confirmed Aspirin [Aspir 81] 81 mg PO DAILY 06/17/14 07/12/18 Fenofibrate Nanocrystallized 145 mg PO DAILY 06/17/14 07/12/18 [Tricor] Gluc Kellogg/Chondro Kellogg A/Vit C/Mn 1,500 mg PO DAILY 06/17/14 07/12/18 [Glucosamine 1,500 Complex Cp] Levothyroxine Sodium [Levoxyl] 100 mcg PO DAILY 06/17/14 07/12/18 oxyCODONE [Roxicodone] 5 g PO QID 06/17/14 07/12/18 Baclofen 10 mg PO DAILY 04/29/18 07/12/18 Baclofen [Lioresal] 20 mg PO QPM 04/29/18 07/12/18 Levomefolate/Algal Oil 1 each PO DAILY 04/29/18 07/12/18 [Deplin-Algal Oil 7.5 mg Cap] Lidocaine Patch 5% [Lidoderm Patch] 1 - 3 each TOP DAILY 04/29/18 07/12/18 Melatonin 3 - 9 mg PO QPM 04/29/18 07/12/18 Progesterone, Micronized 100 mg PO DAILY 04/29/18 07/12/18 [Progesterone] Verapamil HCl [Verapamil ER] 240 mg PO DAILY 04/29/18 07/12/18 Zolpidem [Ambien] 5 mg PO QPM 04/29/18 07/12/18 Albuterol Sulf [Ventolin Hfa 2 - 3 puffs INH Q4HR PRN #1 inhaler 09/09/18 Inhaler] Benzonatate [Tessalon Perle] 100 - 200 mg PO TID PRN #30 capsule 09/09/18 HYDROmorphone [Dilaudid] 2 mg PO Q6H PRN #12 tablet 09/09/18 Ondansetron Odt [Zofran] 4 mg TL Q6H PRN #10 tablet 09/09/18 Oseltamivir [Tamiflu] 75 mg PO BID #10 capsule 09/09/18 Brimonidine 0.1% Ophth Drops 1 drops OPTH BID 03/10/19 03/10/19 [Alphagan P 0.1% Ophth Drops] Lifitegrast [Xiidra] 1 each OP 03/10/19 03/10/19 Bacitracin Zinc Oint 1 applic TOP BID #1 tube 07/03/19 Cephalexin [Keflex] 500 mg PO Q6H #28 capsule 07/03/19 - Allergies Allergies/Adverse Reactions: Allergies Allergy/AdvReac Type Severity Reaction Status Date / Time Sulfa (Sulfonamide Allergy Hives Verified 03/10/19 21:56 Antibiotics) dexamethasone AdvReac Anxiety Verified 03/10/19 21:56 eszopiclone [From Lunesta] AdvReac Anxiety Verified 03/10/19 21:56 propranolol AdvReac Anxiety Verified 03/10/19 21:56 quetiapine fumarate * AdvReac Anxiety Verified 03/10/19 21:56 [From Seroquel] topiramate [From Topamax] AdvReac Anxiety Verified 03/10/19 21:56 - Social History Does the pt smoke?: No Smoking Status: Never smoker Does the pt drink ETOH?: No Does the pt have substance abuse?: No - Immunizations Immunizations are current?: Yes - POLST Patient has POLST: Yes PD ED PE NORMAL - Vitals Vital signs reviewed: Yes - General General: Alert and oriented X 3 - HEENT HEENT: Atraumatic - Neck Neck: Supple, no meningeal sign - Cardiac Cardiac: RRR - Respiratory Respiratory: No respiratory distress - Extremities Extremities: Other (There is incision of the left knee which is overall well- healed but at the inferior base there is a 1cm area of erythema and a small spot of serous drainage. No purulence, no fluctuance. Knee has good active ROM and pt states it feels unchanged from usual after surgery.) Results - Vitals Vitals: Oxygen O2 Source Room air - Labs Labs: Laboratory Tests 07/03/19 07/03/19 16:30 16:30 WBC 6.5 RBC 4.19 L Hgb 12.4 Hct 37.5 MCV 89.5 MCH 29.6 MCHC 33.1 RDW 13.5 Plt Count 311 MPV 9.4 Neut # (Auto) 3.5 Lymph # (Auto) 2.2 [place] # (Auto) 0.5 Eos # (Auto) 0.2 Baso # (Auto) 0.0 Absolute Nucleated RBC 0.00 Nucleated RBC % 0.0 Sodium 139 Potassium 3.4 L Chloride 106 Carbon Dioxide 26 Anion Gap 7.0 BUN 15 Creatinine 0.4 Estimated GFR (MDRD) 158 Glucose 107 H Calcium 9.2 C-Reactive Protein < 1.0 PD MEDICAL DECISION MAKING - ED course ED course: Pt presents with a small area of redness that is well away from the joint, with no purulence. Labs show no leukocytosis or elevated CRP, ROM of the knee is excellent, no signs of septic joint or abscess. I discussed the plan for keflex and close follow up with Rosalinda GREGORIO that works with Dr. Garcia She agrees with plan for cephalexin. Strict return precautions and care for the area discussed with the pt and she was discharged home. Departure - Departure Disposition: 01 Home, Self Care Clinical Impression: Cellulitis Qualifiers: Site of cellulitis: extremity Site of cellulitis of extremity: lower extremity Laterality: left Qualified Code(s): L03.116 - Cellulitis of left lower limb Condition: Good Instructions: ED Infec Skin Cellulitis Follow-Up: Tray Garcia DO [Physician No Access] - Prescriptions: Bacitracin Zinc Oint 1 applic TOP BID #1 tube Cephalexin [Keflex] 500 mg PO Q6H #28 capsule Comments: You were seen today for some redness and drainage from your knee incision. Your labs are reassuring, this appears to be mild soft tissue infection. Please take the antibiotic as prescribed. If the redness is significantly increasing or you are having drainage of pus, develop a fever, or any other concerning symptoms return to the emergency department. Otherwise please follow-up with your orthopedist soon as possible. Keep a thin layer of bacitracin over the wound, avoid touching it, keep a clean bandage over it. Discharge Date/Time: 07/03/19 17:53
[2019-07-03] MEDS ORDERED: cephALEXin 250 MG CAPSULE PO STA (16:10)
[2019-07-03 16:54] LABS: BASOPHILS % (AUTO) 0.6 %; EOSINOPHILS # (AUTO) 0.2 10^3/uL (0.0-0.7); EOSINOPHILS % (AUTO) 3.5 %; HGB - HEMOGLOBIN 12.4 g/dL (12.0-16.0); LYMPHOCYTES # (AUTO) 2.2 10^3/uL (1.5-3.5); LYMPHOCYTES % (AUTO) 33.8 %; MEAN CORPUSCULAR HEMOGLOBIN 29.6 pg (27.0-31.0); MEAN CORPUSCULAR HGB CONC 33.1 g/dL (32.0-36.0); MEAN CORPUSCULAR VOLUME 89.5 fL (81.0-99.0); MEAN PLATELET VOLUME 9.4 fL (7.9-10.8); MONOCYTES # (AUTO) 0.5 10^3/uL (0.0-1.0); MONOCYTES % (AUTO) 7.7 %; NEUTROPHILS # (AUTO) 3.5 10^3/uL (1.5-6.6); NEUTROPHILS % (AUTO) 53.9 %; PLT - PLATELET COUNT 311 10^3/uL (130-450); RED BLOOD COUNT 4.19 10^6/uL (4.20-5.40); RED CELL DISTRIBUTION WIDTH 13.5 % (12.0-15.0); WHITE BLOOD COUNT 6.5 x10^3/uL (4.8-10.8)
[2019-07-03 17:09] LABS: BUN - BLOOD UREA NITROGEN 15 mg/dL (6-20); CALCIUM 9.2 mg/dL (8.5-10.3); CARBON DIOXIDE - CO2 26 mmol/L (21-32); CHLORIDE 106 mmol/L (101-111); CREATININE 0.4 mg/dL (0.4-1.0); CRP - C-REACTIVE PROTEIN < 1.0 mg/dL (0-1.0); GFR - MDRD 158 (>89); GLUCOSE 107 mg/dL (70-100); SODIUM 139 mmol/L (135-145)
[2019-07-03 17:50] VITALS: BP 153/73
== END 2019-07-03 17:53 | disposition home or self-care (01) ==
LOC: ED 15:32
DX: L03.116 Cellulitis of left lower limb (principal); Z96.652 Presence of left artificial knee joint; I10 Essential (primary) hypertension; Z79.82 Long term (current) use of aspirin
CPT/HCPCS: 36415; 80048; 85025; 86140; 99283; 99284; A9270

== ENCOUNTER 2019-07-07 08:00 | Outpatient (CLI) | payer MEDICARE, OTHER | END 2019-07-07 23:59 | disposition home or self-care (01) | LOC: LAB.R 08:00 | PROVIDERS: ATTEND Physician Assistant Medical | DX: L03.116 Cellulitis of left lower limb (principal) | CPT/HCPCS: 87070; 87181; 87205 ==

== ENCOUNTER 2019-08-23 12:35 | Outpatient (CLI) | payer MEDICARE, OTHER ==
--- NOTE | 2019-08-30 12:07 | Mammography Report ---
Reason: ROUTINE MAMMO Procedure Date: 08/23/2019 Accession Number: [id number] / [id number] Procedure: MGS - Screening Mammo Dig Bilat CPT Code: Final Report FULL RESULT: EXAM: Screening Mammo Dig Bilat DATE: 08/23/2019 1:22 PM CLINICAL HISTORY: Screening encounter. History of nulliparity. TECHNIQUE: (B) - Bilateral CC and MLO views were obtained. Left laterally exaggerated CC view is obtained. COMPARISON: 05/03/2018 through 09/09/2009. PARENCHYMAL PATTERN: (F) - The breast(s) demonstrate(s) diffuse fatty replacement. FINDINGS: There are no suspicious masses, calcifications, or areas of distortion. IMPRESSION: Negative examination. BI-RADS category 1. RECOMMENDATION: (ANNUAL) - Recommend routine annual screening mammography. BI-RADS CATEGORY: (1) - Negative. STANDARD QUALIFYING STATEMENTS: 1. This examination was reviewed with the aid of Computer-Aided Detection (CAD). 2. A negative or benign imaging report should not preclude biopsy if clinically suspicious findings are present. 3. Dense breasts may obscure an underlying neoplasm. 4. This examination was reviewed without the aid of 3D breast imaging (tomosynthesis).
== END 2019-08-23 12:36 | disposition home or self-care (01) ==
LOC: DI.S 12:35
DX: Z12.31 Encounter for screening mammogram for malignant neoplasm of breast (principal)
CPT/HCPCS: 77067

== ENCOUNTER 2019-08-24 08:19 | Outpatient (CLI) | payer MEDICARE, OTHER ==
[2019-08-24 10:47] LABS: CALCIUM 9.2 mg/dL (8.5-10.3); CREATININE 0.5 mg/dL (0.4-1.0)
[2019-08-24 10:58] LABS: CHOL/HDL RATIO 2.6 (<4.4); CHOLESTEROL 187 mg/dL; HDL CHOLESTEROL 73 mg/dL; LDL CHOLESTEROL,CALCULATED 92 mg/dL; LDL/HDL RATIO 1.3 (<4.4); VLDL CHOLESTEROL 22 mg/dL
== END 2019-08-24 08:20 | disposition home or self-care (01) ==
LOC: LAB.S 08:19
PROVIDERS: ATTEND Psychiatry & Neurology Psychiatry
DX: F31.81 Bipolar II disorder (principal); Z51.81 Encounter for therapeutic drug level monitoring; E78.5 Hyperlipidemia, unspecified
CPT/HCPCS: 36415; 80048; 80061; 83721; 84443

== ENCOUNTER 2020-02-23 13:45 | Outpatient (CLI) | payer MEDICARE, OTHER ==
[2020-02-23 20:09] LABS: BASOPHILS % (AUTO) 0.8 %; EOSINOPHILS # (AUTO) 0.2 10^3/uL (0.0-0.7); EOSINOPHILS % (AUTO) 3.5 %; HGB - HEMOGLOBIN 13.3 g/dL (12.0-16.0); LYMPHOCYTES # (AUTO) 1.5 10^3/uL (1.5-3.5); LYMPHOCYTES % (AUTO) 30.1 %; MEAN CORPUSCULAR HEMOGLOBIN 30.6 pg (27.0-31.0); MEAN CORPUSCULAR HGB CONC 32.3 g/dL (32.0-36.0); MEAN CORPUSCULAR VOLUME 94.7 fL (81.0-99.0); MEAN PLATELET VOLUME 10.4 fL (7.9-10.8); MONOCYTES # (AUTO) 0.3 10^3/uL (0.0-1.0); MONOCYTES % (AUTO) 6.5 %; NEUTROPHILS % (AUTO) 58.9 %; PLT - PLATELET COUNT 308 10^3/uL (130-450); RED BLOOD COUNT 4.35 10^6/uL (4.20-5.40); RED CELL DISTRIBUTION WIDTH 13.9 % (12.0-15.0); WHITE BLOOD COUNT 5.1 x10^3/uL (4.8-10.8)
[2020-02-23 20:32] LABS: ALBUMIN 4.1 g/dL (3.2-5.5); ALBUMIN/GLOBULIN RATIO 1.6 (1.0-2.2); BILIRUBIN,TOTAL 0.3 mg/dL (0.2-1.0); CALCIUM 9.6 mg/dL (8.5-10.3); CREATININE 0.5 mg/dL (0.4-1.0); TOTAL PROTEIN 6.6 g/dL (6.7-8.2)
[2020-02-23 20:38] LABS: AMYLASE 51 U/L (28-100); LIPASE 30 U/L (22-51)
[2020-02-23 20:39] LABS: CRP - C-REACTIVE PROTEIN < 1.0 mg/dL (0-1.0)
== END 2020-02-23 13:46 | disposition home or self-care (01) ==
LOC: LAB.S 13:45
PROVIDERS: ATTEND Registered Nurse
DX: E78.5 Hyperlipidemia, unspecified (principal); I10 Essential (primary) hypertension; F31.9 Bipolar disorder, unspecified; F41.9 Anxiety disorder, unspecified; E03.9 Hypothyroidism, unspecified; G43.819 Other migraine, intractable, without status migrainosus; R11.0 Nausea
CPT/HCPCS: 36415; 80053; 82150; 83516; 83690; 84443; 85025; 85651; 86140

== ENCOUNTER 2020-04-08 21:00 | Emergency (ER) | payer MEDICARE, OTHER ==
[2020-04-08 21:26] VITALS: BP 166/99
--- NOTE | 2020-04-08 21:41 | ED Physician Documentation ---
PD HPI ABD PAIN - Stated complaint Stated Complaint: AB PX - Chief complaint Chief Complaint: Abd Pain - History obtained from History obtained from: Patient, Family - History of Present Illness Timing - onset: How many days ago (8) Timing - duration: Days (8) Timing - details: Gradual onset, Still present Quality: Cramping, Pain Location: Periumbilical, Suprapubic Improved by: Laying still Associated symptoms: Vomiting, Constipation Similar symptoms before: Diagnosis (constipation) Recently seen: Not recently seen - Additional information Additional information: 69-year-old female chronically on opiates for chronic daily headache and a left total knee replacement that has been giving her problems as developed constipation for 8 days. She states that she ran out of her stool softener and did not have bowel movement started to stool softeners begin use some laxative and has held only pellets out. She is having abdominal pain over the past 3 days that has become worse and today she vomited her dinner. She has not used an enema she has not used milk of magnesia or magnesium citrate. The laxative she used was Ex-Lax. She usually has had good result with that and had no result. Review of Systems Constitutional: denies: Fever, Chills, Myalgias Eyes: denies: Decreased vision Ears: denies: Ear pain Nose: denies: Rhinorrhea / runny nose, Congestion Throat: denies: Sore throat Cardiac: denies: Chest pain / pressure, Palpitations Respiratory: denies: Dyspnea, Cough GI: reports: Abdominal Pain, Vomiting, Constipation : denies: Dysuria, Frequency Skin: denies: Rash Musculoskeletal: denies: Neck pain, Back pain, Extremity pain PD PAST MEDICAL HISTORY - Past Medical History Past Medical History: Yes Cardiovascular: Hypertension, High cholesterol Respiratory: Sleep apnea Neuro: None Endocrine/Autoimmune: HyPOthyroidism GI: Chronic constipation 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 HEENT: Chronic vision loss Psych: Depression, Anxiety, Panic attacks, Claustrophobia Musculoskeletal: Osteoarthritis, Chronic back pain Derm: None - Past Surgical History Past Surgical History: Yes General: Cholecystectomy, Colonoscopy Ortho: Knee replacement, 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 HEENT: Cataracts, Tonsil/Adenoidectomy Derm: Skin cancer surgery - Present Medications Home Medications: Ambulatory Orders Medication Instructions Recorded Confirmed Aspirin [Aspir 81] 81 mg PO DAILY 06/17/14 07/12/18 Fenofibrate Nanocrystallized 145 mg PO DAILY 06/17/14 07/12/18 [Tricor] Gluc Kellogg/Chondro Kellogg A/Vit C/Mn 1,500 mg PO DAILY 06/17/14 07/12/18 [Glucosamine 1,500 Complex Cp] Levothyroxine Sodium [Levoxyl] 100 mcg PO DAILY 06/17/14 07/12/18 oxyCODONE [Roxicodone] 5 g PO QID 06/17/14 07/12/18 Baclofen 10 mg PO DAILY 04/29/18 07/12/18 Baclofen [Lioresal] 20 mg PO QPM 04/29/18 07/12/18 Levomefolate/Algal Oil 1 each PO DAILY 04/29/18 07/12/18 [Deplin-Algal Oil 7.5 mg Cap] Lidocaine Patch 5% [Lidoderm Patch] 1 - 3 each TOP DAILY 04/29/18 07/12/18 Melatonin 3 - 9 mg PO QPM 04/29/18 07/12/18 Progesterone, Micronized 100 mg PO DAILY 04/29/18 07/12/18 [Progesterone] Verapamil HCl [Verapamil ER] 240 mg PO DAILY 04/29/18 07/12/18 Zolpidem [Ambien] 5 mg PO QPM 04/29/18 07/12/18 Albuterol Sulf [Ventolin Hfa 2 - 3 puffs INH Q4HR PRN #1 inhaler 09/09/18 Inhaler] Benzonatate [Tessalon Perle] 100 - 200 mg PO TID PRN #30 capsule 09/09/18 HYDROmorphone [Dilaudid] 2 mg PO Q6H PRN #12 tablet 09/09/18 Ondansetron Odt [Zofran] 4 mg TL Q6H PRN #10 tablet 09/09/18 Oseltamivir [Tamiflu] 75 mg PO BID #10 capsule 09/09/18 Brimonidine 0.1% Ophth Drops 1 drops OPTH BID 03/10/19 03/10/19 [Alphagan P 0.1% Ophth Drops] Lifitegrast [Xiidra] 1 each OP 03/10/19 03/10/19 Bacitracin Zinc Oint 1 applic TOP BID #1 tube 07/03/19 Cephalexin [Keflex] 500 mg PO Q6H #28 capsule 07/03/19 - Allergies Allergies/Adverse Reactions: Allergies Allergy/AdvReac Type Severity Reaction Status Date / Time Sulfa (Sulfonamide Allergy Hives Verified 03/10/19 21:56 Antibiotics) dexamethasone AdvReac Anxiety Verified 03/10/19 21:56 eszopiclone [From Lunesta] AdvReac Anxiety Verified 03/10/19 21:56 propranolol AdvReac Anxiety Verified 03/10/19 21:56 quetiapine fumarate * AdvReac Anxiety Verified 03/10/19 21:56 [From Seroquel] topiramate [From Topamax] AdvReac Anxiety Verified 03/10/19 21:56 - Social History Does the pt smoke?: No Smoking Status: Never smoker Does the pt drink ETOH?: No Does the pt have substance abuse?: No - Immunizations Immunizations are current?: Yes Immunizations: TDAP >10years/unknown - POLST Patient has POLST: Yes PD ED PE NORMAL - Vitals Vital signs reviewed: Yes (hpyertensive ) - General General: Alert and oriented X 3, No acute distress, Well developed/nourished - HEENT HEENT: Atraumatic, PERRL, EOMI - Neck Neck: Supple, no meningeal sign, No bony TTP - Cardiac Cardiac: RRR, No murmur - Respiratory Respiratory: No respiratory distress, Clear bilaterally - Abdomen Abdomen: Normal bowel sounds, Soft, Other (general tender is mild suprapubic tenderness is more. No garding or rebound. 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, No motor deficit, No sensory deficit, Normal speech Eye Opening: Spontaneous Motor: Obeys Commands Verbal: Oriented GCS Score: 15 - Psych Psych: Normal mood, Normal affect Results - Vitals Vitals: Vital Signs - 24 hr 04/08/20 04/08/20 21:15 21:27 Temperature 37.1 C 37.1 C Heart Rate 77 77 Respiratory 18 18 Rate Blood Pressure 166/99 H 166/99 H O2 Saturation 98 98 Oxygen O2 Source Room air PD MEDICAL DECISION MAKING - ED course Complexity details: reviewed old records, considered differential, d/w patient, d/w family ED course: 69 y/o female with narcotic induced constipation has not had luck with ex-lax and she is administered an oil retention enema. This has some results but not complete and she is offered MOM. She has a [address] to home and she is dispensed 2 doses of Milk of magnesia and instructed to take a dose on arrival to home and another in 6 hours if she does not have results. Departure - Departure Disposition: 01 Home, Self Care Clinical Impression: Constipation Qualifiers: Constipation type: drug induced constipation Qualified Code(s): K59.03 - Drug induced constipation Instructions: ED Constipation Follow-Up: Shannon Orosco ARNP [Primary Care Provider] - Comments: Take the milk of magnesia when you arrive home and if you do not have significant results within 6 hours take a second dose.
[2020-04-08] MEDS ORDERED: MAGNESIUM HYDROXIDE 2,400 MG/30 ML UDC PO STA ×2 (22:40)
== END 2020-04-08 23:04 | disposition home or self-care (01) ==
LOC: ED 21:00
DX: K59.03 Drug induced constipation (principal); T40.2X5A Adverse effect of other opioids, initial encounter; R51.9 Headache, unspecified; G89.29 Other chronic pain; Z79.891 Long term (current) use of opiate analgesic; Z96.652 Presence of left artificial knee joint; I10 Essential (primary) hypertension; Z79.82 Long term (current) use of aspirin
CPT/HCPCS: 99282; A9270

== ENCOUNTER 2020-05-02 09:46 | Outpatient (CLI) | payer MEDICARE, OTHER | END 2020-05-02 09:47 | disposition home or self-care (01) | LOC: COV 09:46 | PROVIDERS: ATTEND Registered Nurse | DX: Z01.818 Encounter for other preprocedural examination (principal); Z20.828 Contact with and (suspected) exposure to other viral communicable diseases ==

== ENCOUNTER 2021-10-08 07:27 | Outpatient (CLI) | payer MEDICARE, OTHER ==
[2021-10-08 14:34] LABS: BASOPHILS % (AUTO) 0.9 %; EOSINOPHILS # (AUTO) 0.2 10^3/uL (0.0-0.7); EOSINOPHILS % (AUTO) 4.1 %; HCT - HEMATOCRIT 45.4 % (37.0-47.0); HGB - HEMOGLOBIN 14.6 g/dL (12.0-16.0); LYMPHOCYTES # (AUTO) 2.3 10^3/uL (1.5-3.5); LYMPHOCYTES % (AUTO) 50.4 %; MEAN CORPUSCULAR HEMOGLOBIN 29.6 pg (27.0-31.0); MEAN CORPUSCULAR HGB CONC 32.2 g/dL (32.0-36.0); MEAN CORPUSCULAR VOLUME 92.1 fL (81.0-99.0); MEAN PLATELET VOLUME 9.8 fL (7.9-10.8); MONOCYTES # (AUTO) 0.4 10^3/uL (0.0-1.0); MONOCYTES % (AUTO) 8.1 %; NEUTROPHILS # (AUTO) 1.7 10^3/uL (1.5-6.6); NEUTROPHILS % (AUTO) 36.3 %; PLT - PLATELET COUNT 347 10^3/uL (130-450); RED BLOOD COUNT 4.93 10^6/uL (4.20-5.40); RED CELL DISTRIBUTION WIDTH 13.5 % (12.0-15.0); WHITE BLOOD COUNT 4.6 x10^3/uL (4.8-10.8)
[2021-10-08 15:27] LABS: ALBUMIN/GLOBULIN RATIO 1.4 (1.0-2.2); ALKALINE PHOSPHATASE 40 IU/L (42-121); ALT ALANINE AMINOTRANSFERASE 23 IU/L (10-60); AST ASPARTATE AMINOTRANSFERASE 27 IU/L (10-42); BILIRUBIN,TOTAL 0.5 mg/dL (0.2-1.0); BUN - BLOOD UREA NITROGEN 14 mg/dL (6-20); CALCIUM 9.7 mg/dL (8.5-10.3); CARBON DIOXIDE - CO2 28 mmol/L (21-32); CHLORIDE 103 mmol/L (101-111); CHOL/HDL RATIO 2.8 (<4.4); CHOLESTEROL 188 mg/dL; CREATININE 0.6 mg/dL (0.4-1.0); GFR - MDRD 98 (>89); GLUCOSE 90 mg/dL (70-100); HDL CHOLESTEROL 66 mg/dL; LDL CHOLESTEROL,CALCULATED 96 mg/dL; LDL/HDL RATIO 1.5 (<4.4); POTASSIUM 3.5 mmol/L (3.5-5.0); SODIUM 141 mmol/L (135-145); TOTAL PROTEIN 6.8 g/dL (6.7-8.2); TRIGLYCERIDES 131 mg/dL; VLDL CHOLESTEROL 26 mg/dL
[2021-10-08 16:09] LABS: THYROID STIMULATING HORMONE 5.73 uIU/mL (0.34-5.60)
[2021-10-08 16:51] LABS: FREE T4 (FREE THYROXINE) 0.59 ng/dL (0.58-1.64)
== END 2021-10-08 07:28 | disposition home or self-care (01) ==
LOC: LAB.S 07:27
PROVIDERS: ATTEND Registered Nurse
DX: Z79.899 Other long term (current) drug therapy (principal); E78.5 Hyperlipidemia, unspecified; E03.9 Hypothyroidism, unspecified
CPT/HCPCS: 36415; 80053; 80061; 83721; 84439; 84443; 85025

== ENCOUNTER 2022-02-08 05:56 | Emergency (ER) | payer MEDICARE, OTHER ==
--- OUTSIDE RECORDS SUMMARY | 2022-02-08 06:15 | EXTERNAL MEDICAL SUMMARY RPT | Continuity of Care Document ---
:1950 Author Organization [place] Address [address] [place] [address] Phone Allergies and Intolerances date description facility type (no date) [facility] (unknown) Encounters No information. Functional Status No information. Immunizations No information. Medications date description facility (no date) [facility] [id number] cyanocobalamin (vitamin b-12) All [id number] cyanocobalamin (vitamin b-12) All (no date) [facility]OLPID[facility] TARTRATE All Problems No information. Procedures date description facility [id number] Diagnosis [facility] [id number] Finding [facility] [id number] General Physician [facility] Results/Labs No information. Social History date description facility (no date) Ex-smoker (finding) [facility] Vital Signs No information.
[2022-02-08 06:25] LABS: BASOPHILS % (AUTO) 0.5 %; EOSINOPHILS # (AUTO) 0.2 10^3/uL (0.0-0.7); EOSINOPHILS % (AUTO) 2.2 %; HCT - HEMATOCRIT 44.9 % (37.0-47.0); HGB - HEMOGLOBIN 14.7 g/dL (12.0-16.0); LYMPHOCYTES # (AUTO) 2.3 10^3/uL (1.5-3.5); LYMPHOCYTES % (AUTO) 30.7 %; MEAN CORPUSCULAR HEMOGLOBIN 29.8 pg (27.0-31.0); MEAN CORPUSCULAR HGB CONC 32.7 g/dL (32.0-36.0); MEAN CORPUSCULAR VOLUME 90.9 fL (81.0-99.0); MEAN PLATELET VOLUME 9.6 fL (7.9-10.8); MONOCYTES # (AUTO) 0.7 10^3/uL (0.0-1.0); MONOCYTES % (AUTO) 9.8 %; NEUTROPHILS # (AUTO) 4.2 10^3/uL (1.5-6.6); NEUTROPHILS % (AUTO) 56.5 %; PLT - PLATELET COUNT 288 10^3/uL (130-450); RED BLOOD COUNT 4.94 10^6/uL (4.20-5.40); RED CELL DISTRIBUTION WIDTH 13.3 % (12.0-15.0); WHITE BLOOD COUNT 7.3 x10^3/uL (4.8-10.8)
[2022-02-08 07:01] LABS: ALBUMIN 3.9 g/dL (3.2-5.5); ALBUMIN/GLOBULIN RATIO 1.4 (1.0-2.2); BILIRUBIN,TOTAL 0.5 mg/dL (0.2-1.0); CALCIUM 9.3 mg/dL (8.5-10.3); CREATININE 0.5 mg/dL (0.4-1.0); POTASSIUM 3.3 mmol/L (3.5-5.0); TOTAL PROTEIN 6.6 g/dL (6.7-8.2)
--- NOTE | 2022-02-08 08:31 | ED Physician Documentation ---
PD HPI CHEST PAIN - Stated complaint Stated Complaint: CHEST PX - Chief complaint Chief Complaint: Cardiac - History obtained from History obtained from: Patient - Additional information Additional information: The patient comes to the emergency department with chief complaint of sharp left-sided pain that she awakened with at about 4:00 this morning. She states it is worse with certain positions. No shortness of breath or dyspnea. Mild nausea. Patient feels the pain somewhat in her left shoulder and into her left axilla She has never had pain like this before. She has been feeling well rec ently and denies any respiratory symptoms. No history of smoking, hypertension, diabetes, or coronary artery disease. She states that the pain was at its worst shortly after she woke up and has improved somewhat since. At worst it was 5/10, now 3/10. Review of Systems Ten Systems: 10 systems reviewed and negative Constitutional: reports: Reviewed and negative Eyes: reports: Reviewed and negative Ears: reports: Reviewed and negative Nose: reports: Reviewed and negative Throat: reports: Reviewed and negative Cardiac: reports: Chest pain / pressure Respiratory: reports: Reviewed and negative GI: reports: Reviewed and negative : reports: Reviewed and negative Skin: reports: Reviewed and negative Musculoskeletal: reports: Reviewed and negative Neurologic: reports: Reviewed and negative Psychiatric: reports: Reviewed and negative Endocrine: reports: Reviewed and negative Immunocompromised: reports: Reviewed and negative PD PAST MEDICAL HISTORY - Past Medical History Cardiovascular: Hypertension, High cholesterol Respiratory: Sleep apnea Neuro: None Endocrine/Autoimmune: HyPOthyroidism GI: Chronic constipation 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 AND 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 ANALYST: None : Frequency HEENT: Chronic vision loss Psych: Depression, Anxiety, Panic attacks, Claustrophobia Musculoskeletal: Osteoarthritis, Chronic back pain Derm: None - Past Surgical History Past Surgical History: Yes General: Cholecystectomy, Colonoscopy Ortho: Knee replacement, Arthroscopic surgery /RESEARCH AND EVALUATION ANALYST: Dilation and currettage HEENT: Cataracts, Tonsil/Adenoidectomy Derm: Skin cancer surgery - Present Medications Home Medications: Ambulatory Orders Medication Instructions Recorded Confirmed Aspirin [Aspir 81] 81 mg PO DAILY 06/17/14 07/12/18 Fenofibrate Nanocrystallized 145 mg PO DAILY 06/17/14 07/12/18 [Tricor] Gluc Kellogg/Chondro Kellogg A/Vit C/Mn 1,500 mg PO DAILY 06/17/14 07/12/18 [Glucosamine 1,500 Complex Cp] Levothyroxine Sodium [Levoxyl] 100 mcg PO DAILY 06/17/14 07/12/18 oxyCODONE [Roxicodone] 5 g PO QID 06/17/14 07/12/18 Baclofen 10 mg PO DAILY 04/29/18 07/12/18 Baclofen [Lioresal] 20 mg PO QPM 04/29/18 07/12/18 Levomefolate/Algal Oil 1 each PO DAILY 04/29/18 07/12/18 [Deplin-Algal Oil 7.5 mg Cap] Lidocaine Patch 5% [Lidoderm Patch] 1 - 3 each TOP DAILY 04/29/18 07/12/18 Melatonin 3 - 9 mg PO QPM 04/29/18 07/12/18 Progesterone, Micronized 100 mg PO DAILY 04/29/18 07/12/18 [Progesterone] Verapamil HCl [Verapamil ER] 240 mg PO DAILY 04/29/18 07/12/18 Zolpidem [Ambien] 5 mg PO QPM 04/29/18 07/12/18 Albuterol Sulf [Ventolin Hfa 2 - 3 puffs INH Q4HR PRN #1 inhaler 09/09/18 Inhaler] Benzonatate [Tessalon Perle] 100 - 200 mg PO TID PRN #30 capsule 09/09/18 HYDROmorphone [Dilaudid] 2 mg PO Q6H PRN #12 tablet 09/09/18 Ondansetron Odt [Zofran] 4 mg TL Q6H PRN #10 tablet 09/09/18 Oseltamivir [Tamiflu] 75 mg PO BID #10 capsule 09/09/18 Brimonidine 0.1% Ophth Drops 1 drops OPTH BID 03/10/19 03/10/19 [Alphagan P 0.1% Ophth Drops] Lifitegrast [Xiidra] 1 each OP 03/10/19 03/10/19 Bacitracin Zinc Oint 1 applic TOP BID #1 tube 07/03/19 cephALEXin [Keflex] 500 mg PO Q6H #28 capsule 07/03/19 Meclizine [Antivert] 25 mg PO Q6H PRN #16 tablet 02/08/22 - Allergies Allergies/Adverse Reactions: Allergies Allergy/AdvReac Type Severity Reaction Status Date / Time Sulfa (Sulfonamide Allergy Hives Verified 02/08/22 06:09 Antibiotics) dexamethasone AdvReac Anxiety Verified 02/08/22 06:09 eszopiclone [From Lunesta] AdvReac Anxiety Verified 02/08/22 06:09 propranolol AdvReac Anxiety Verified 02/08/22 06:09 quetiapine fumarate * AdvReac Anxiety Verified 02/08/22 06:09 [From Seroquel] topiramate [From Topamax] AdvReac Anxiety Verified 02/08/22 06:09 - Social History Does the pt smoke?: No Smoking Status: Never smoker Does the pt drink ETOH?: No Does the pt have substance abuse?: No - Immunizations Immunizations are current?: Yes Immunizations: TDAP >10years/unknown - POLST Patient has POLST: Yes PD ED PE NORMAL - Vitals Vital signs reviewed: Yes - General General: Alert and oriented X 3, No acute distress, Well developed/nourished - HEENT HEENT: Atraumatic, PERRL, EOMI, Moist mucous membranes - Neck Neck: Supple, no meningeal sign - Cardiac Cardiac: RRR, No murmur, Strong equal pulses, Other (Mildly, but not fully, reproducible left lateral chest wall tenderness.) - Respiratory Respiratory: No respiratory distress, Clear bilaterally - Abdomen Abdomen: Soft, Non tender, Non distended - Back Back: No CVA TTP, No spinal TTP - Derm Derm: Normal color, Warm and dry, No rash - Extremities Extremities: No deformity, No edema - Neuro Neuro: Alert and oriented X 3, manager merchandising 2-12 intact, Normal speech - Psych Psych: Normal mood, Normal affect Results - Vitals Vitals: Oxygen O2 Source Room air - EKG (time done) 0604 Rate: Rate (enter#) (64) Rhythm: NSR [place]: Normal Intervals: Normal [place] QRS: Normal Ischemia: Normal ST segments, T wave inversion (III) Other comments: Other comments (No evidence of acute ischemia. Single-lead T- wave inversions are not indicative of acute ischemia) Compare to prior EKG: Old EKG unavailable - Labs Labs: Laboratory Tests 02/08/22 02/08/22 02/08/22 06:15 06:15 06:44 WBC 7.3 RBC 4.94 Hgb 14.7 Hct 44.9 MCV 90.9 MCH 29.8 MCHC 32.7 RDW 13.3 Plt Count 288 MPV 9.6 Neut # (Auto) 4.2 Lymph # (Auto) 2.3 [place] # (Auto) 0.7 Eos # (Auto) 0.2 Baso # (Auto) 0.0 Absolute Nucleated RBC 0.00 Nucleated RBC % 0.0 Sodium 140 Potassium 3.3 L Chloride 103 Carbon Dioxide 28 Anion Gap 9.0 BUN 17 Creatinine 0.5 Estimated GFR (MDRD) 121 Glucose 95 Calcium 9.3 Total Bilirubin 0.5 AST 21 ALT 19 Alkaline Phosphatase 38 L Troponin I High Sens 8.2 Total Protein 6.6 L Albumin 3.9 Globulin 2.7 Albumin/Globulin Ratio 1.4 Lipase 28 02/08/22 07:57 WBC RBC Hgb Hct MCV MCH MCHC RDW Plt Count MPV Neut # (Auto) Lymph # (Auto) [place] # (Auto) Eos # (Auto) Baso # (Auto) Absolute Nucleated RBC Nucleated RBC % Sodium Potassium Chloride Carbon Dioxide Anion Gap BUN Creatinine Estimated GFR (MDRD) Glucose Calcium Total Bilirubin AST ALT Alkaline Phosphatase Troponin I High Sens 7.9 Total Protein Albumin Globulin Albumin/Globulin Ratio Lipase - Rads (name of study) Chest x-ray Radiology: Final report received, EMP read indepedently, See rad report (Negative) PD MEDICAL DECISION MAKING - ED course Complexity details: reviewed results, re-evaluated patient, considered differential, d/w patient ED course: The patient's pain seemed to be more likely to be musculoskeletal, given the relation to movement. Her pain had improved since she first awakened with it. Initial work-up was unremarkable with a normal troponin and unremarkable EKG. The patient's troponin was repeated and Still normal. I discussed with the patient that I do not feel that she has had a cardiac event at this time, but that it is important that she follows up with her primary doctor to discuss having a stress test done to further evaluate this. We have discussed the need for return to the emergency department, should the patient develop escalating pain, and especially associated with shortness of breath, worsening nausea, and/or diaphoresis. Departure - Departure Disposition: Home, Self Care Clinical Impression: Chest pain Qualifiers: Chest pain type: unspecified Qualified Code(s): R07.9 - Chest pain, unspecified Benign positional vertigo Qualifiers: Laterality: unspecified laterality Qualified Code(s): H81.10 - Benign paroxysmal vertigo, unspecified ear Condition: Stable Instructions: ED Chest Pain NonCardiac, ED Chest Pain Costochondritis Prescriptions: Meclizine [Antivert] 25 mg PO Q6H PRN #16 tablet PRN Reason: Vertigo Comments: Your labs, including the repeat cardiac enzymes, look good. Your EKG also shows no evidence of heart attack. No emergent condition has been found as a cause for your pain today. Please follow-up with your primary doctor if you continue to have episodes of pain and discuss having a stress test done. Discharge Date/Time: 02/08/22 08:43
[2022-02-08 08:32] VITALS: BP 142/69
--- NOTE | 2022-02-08 08:35 | XRAY Report ---
PROCEDURE: Chest 1 View X-Ray INDICATIONS: Chest pain TECHNIQUE: One view of the chest was acquired. COMPARISON: 09/28/2016 FINDINGS: Surgical changes and devices: None. Lungs and pleura: No pleural effusions or pneumothorax. Lungs are clear. Mediastinum: Mediastinal contours appear normal. Heart size is normal. Calcification is seen of the aortic arch. Bones and chest wall: No suspicious bony lesions. Age-appropriate degenerative changes are seen. Overlying soft tissues appear unremarkable. IMPRESSION: No significant portable chest abnormality is seen for age. Note: No significant discrepancy from the preliminary report. Reviewed by: Sergio Collins MD on 02/08/2022 7:34 AM [facility] Approved by: Sergio Collins MD on 02/08/2022 7:34 AM [facility] Station ID: [id number]
== END 2022-02-08 08:43 | disposition home or self-care (01) ==
LOC: ED 05:56
DX: H81.10 Benign paroxysmal vertigo, unspecified ear (principal); R07.9 Chest pain, unspecified; I10 Essential (primary) hypertension
CPT/HCPCS: 36415; 80053; 83690; 84484; 85025; 93005; 99284

== ENCOUNTER 2022-11-03 07:06 | Outpatient (CLI) | payer MEDICARE, OTHER ==
[2022-11-03 15:02] LABS: BASOPHILS # (AUTO) 0.1 10^3/uL (0.0-0.1); BASOPHILS % (AUTO) 1.3 %; EOSINOPHILS # (AUTO) 0.2 10^3/uL (0.0-0.7); EOSINOPHILS % (AUTO) 4.8 %; HCT - HEMATOCRIT 45.1 % (37.0-47.0); HGB - HEMOGLOBIN 14.2 g/dL (12.0-16.0); LYMPHOCYTES % (AUTO) 42.7 %; MEAN CORPUSCULAR HEMOGLOBIN 29.6 pg (27.0-31.0); MEAN CORPUSCULAR HGB CONC 31.5 g/dL (32.0-36.0); MEAN PLATELET VOLUME 9.9 fL (7.9-10.8); MONOCYTES # (AUTO) 0.4 10^3/uL (0.0-1.0); MONOCYTES % (AUTO) 9.4 %; NEUTROPHILS # (AUTO) 1.9 10^3/uL (1.5-6.6); NEUTROPHILS % (AUTO) 41.8 %; PLT - PLATELET COUNT 323 10^3/uL (130-450); RED CELL DISTRIBUTION WIDTH 13.3 % (12.0-15.0); WHITE BLOOD COUNT 4.6 x10^3/uL (4.8-10.8)
[2022-11-03 15:36] LABS: ALBUMIN/GLOBULIN RATIO 1.4 (1.0-2.2); ALKALINE PHOSPHATASE 35 IU/L (42-121); ALT ALANINE AMINOTRANSFERASE 20 IU/L (10-60); AST ASPARTATE AMINOTRANSFERASE 24 IU/L (10-42); BILIRUBIN,TOTAL 0.6 mg/dL (0.2-1.0); BUN - BLOOD UREA NITROGEN 17 mg/dL (6-20); CALCIUM 9.3 mg/dL (8.5-10.3); CARBON DIOXIDE - CO2 27 mmol/L (21-32); CHLORIDE 108 mmol/L (101-111); CHOL/HDL RATIO 2.9 (<4.4); CHOLESTEROL 184 mg/dL; CREATININE 0.5 mg/dL (0.4-1.0); GFR - MDRD 121 (>89); GLUCOSE 90 mg/dL (70-100); HDL CHOLESTEROL 63 mg/dL; LDL CHOLESTEROL,CALCULATED 97 mg/dL; LDL/HDL RATIO 1.5 (<4.4); POTASSIUM 3.5 mmol/L (3.5-5.0); SODIUM 143 mmol/L (135-145); TOTAL PROTEIN 6.9 g/dL (6.7-8.2); TRIGLYCERIDES 122 mg/dL; VLDL CHOLESTEROL 24 mg/dL
[2022-11-03 15:43] LABS: THYROID STIMULATING HORMONE 0.8 uIU/mL (0.34-5.60)
== END 2022-11-03 07:07 | disposition home or self-care (01) ==
LOC: LAB.S 07:06
PROVIDERS: ATTEND Registered Nurse
DX: E78.5 Hyperlipidemia, unspecified (principal); Z79.899 Other long term (current) drug therapy; E03.9 Hypothyroidism, unspecified
CPT/HCPCS: 36415; 80053; 80061; 83721; 84443; 85025

== ENCOUNTER 2023-05-22 09:20 | Outpatient (CLI) | payer MEDICARE, OTHER | END 2023-05-22 23:59 | disposition home or self-care (01) | LOC: LAB.S 09:20 | PROVIDERS: ATTEND Physician Assistant Medical | DX: N39.0 Urinary tract infection, site not specified (principal) | CPT/HCPCS: 87077; 87086; 87181 ==

== ENCOUNTER 2023-08-28 14:08 | Emergency (ER) | payer MEDICARE, OTHER ==
[2023-08-28 14:54] LABS: BASOPHILS # (AUTO) 0.1 10^3/uL (0.0-0.1); BASOPHILS % (AUTO) 1.3 %; EOSINOPHILS # (AUTO) 0.1 10^3/uL (0.0-0.7); EOSINOPHILS % (AUTO) 2.4 %; HCT - HEMATOCRIT 43.8 % (37.0-47.0); HGB - HEMOGLOBIN 14.2 g/dL (12.0-16.0); LYMPHOCYTES # (AUTO) 2.3 10^3/uL (1.5-3.5); MEAN CORPUSCULAR HEMOGLOBIN 29.5 pg (27.0-31.0); MEAN CORPUSCULAR HGB CONC 32.4 g/dL (32.0-36.0); MEAN CORPUSCULAR VOLUME 91.1 fL (81.0-99.0); MEAN PLATELET VOLUME 9.8 fL (7.9-10.8); MONOCYTES # (AUTO) 0.5 10^3/uL (0.0-1.0); MONOCYTES % (AUTO) 9.6 %; NEUTROPHILS # (AUTO) 2.4 10^3/uL (1.5-6.6); NEUTROPHILS % (AUTO) 43.5 %; PLT - PLATELET COUNT 333 10^3/uL (130-450); RED BLOOD COUNT 4.81 10^6/uL (4.20-5.40); RED CELL DISTRIBUTION WIDTH 13.5 % (12.0-15.0); WHITE BLOOD COUNT 5.4 x10^3/uL (4.8-10.8)
--- NOTE | 2023-08-28 15:03 | ED Physician Documentation ---
History of Present Illness - Stated complaint Stated Complaint: DIZZY - Chief complaint Chief Complaint: Neuro - History obtained from History obtained from: Patient - History of Present Illness Timing: How many weeks ago (6) Pain level max: 0 Pain level now: 0 - Additonal information Additional information: 73-year-old female presents to the emergency department with dizziness ongoing for the past 6 weeks. She states that normally she feels "woozy and off balance". She states usually she feels like she is spinning around in circles but occasionally will feel like the room is spinning around her. She has been to the walk-in clinic several times, states her ears have been cleaned several times. Placed on meclizine which did seem to help for a short amount of time. She has not been seen by her primary care provider or by ENT. She does have a neurologist for her chronic daily headaches. She had a occipital nerve ablation about 2 weeks ago. The dizziness has been ongoing for 6 weeks. No fevers. No chills. No trauma. Worse with movement, better with standing still. No numbness or tingling. No difficulty with speech or swallowing. She states that she has had "blurry vision" for the past 6 months. She has been seen by ophthalmology who stated that she needs reading glasses. Review of Systems Constitutional: denies: Fever, Chills GI: denies: Vomiting, Diarrhea Skin: denies: Rash Musculoskeletal: denies: Neck pain, Back pain Neurologic: denies: Headache PD PAST MEDICAL HISTORY - Past Medical History Cardiovascular: Hypertension, High cholesterol Respiratory: Sleep apnea Neuro: None Endocrine/Autoimmune: HyPOthyroidism GI: Chronic constipation PROFESSIONAL SERVICES SPECIALIST: None : Frequency HEENT: Chronic vision loss Psych: Depression, Anxiety, Panic attacks, Claustrophobia Musculoskeletal: Osteoarthritis, Chronic back pain Derm: None - Past Surgical History Past Surgical History: Yes General: Cholecystectomy, Colonoscopy Ortho: Knee replacement, Arthroscopic surgery /PROFESSIONAL SERVICES SPECIALIST: Dilation and currettage HEENT: Cataracts, Tonsil/Adenoidectomy Derm: Skin cancer surgery - Present Medications Home Medications: Ambulatory Orders Medication Instructions Recorded Confirmed Aspirin [Aspir 81] 81 mg PO DAILY 06/17/14 07/12/18 Fenofibrate Nanocrystallized 145 mg PO DAILY 06/17/14 07/12/18 [Tricor] Gluc Kellogg/Chondro Kellogg A/Vit C/Mn 1,500 mg PO DAILY 06/17/14 07/12/18 [Glucosamine 1,500 Complex Cp] Levothyroxine Sodium [Levoxyl] 100 mcg PO DAILY 06/17/14 07/12/18 oxyCODONE [Roxicodone] 5 g PO QID 06/17/14 07/12/18 Baclofen 10 mg PO DAILY 04/29/18 07/12/18 Baclofen [Lioresal] 20 mg PO QPM 04/29/18 07/12/18 Levomefolate/Algal Oil 1 each PO DAILY 04/29/18 07/12/18 [Deplin-Algal Oil 7.5 mg Cap] Lidocaine Patch 5% [Lidoderm Patch] 1 - 3 each TOP DAILY 04/29/18 07/12/18 Melatonin 3 - 9 mg PO QPM 04/29/18 07/12/18 Progesterone, Micronized 100 mg PO DAILY 04/29/18 07/12/18 [Progesterone] Verapamil HCl [Verapamil ER] 240 mg PO DAILY 04/29/18 07/12/18 Zolpidem [Ambien] 5 mg PO QPM 04/29/18 07/12/18 Albuterol Sulf [Ventolin Hfa 2 - 3 puffs INH Q4HR PRN #1 inhaler 09/09/18 Inhaler] Benzonatate [Tessalon Perle] 100 - 200 mg PO TID PRN #30 capsule 09/09/18 HYDROmorphone [Dilaudid] 2 mg PO Q6H PRN #12 tablet 09/09/18 Ondansetron Odt [Zofran] 4 mg TL Q6H PRN #10 tablet 09/09/18 Oseltamivir [Tamiflu] 75 mg PO BID #10 capsule 09/09/18 Brimonidine 0.1% Ophth Drops 1 drops OPTH BID 03/10/19 03/10/19 [Alphagan P 0.1% Ophth Drops] Lifitegrast [Xiidra] 1 each OP 03/10/19 03/10/19 Bacitracin Zinc Oint 1 applic TOP BID #1 tube 07/03/19 cephALEXin [Keflex] 500 mg PO Q6H #28 capsule 07/03/19 Meclizine [Antivert] 25 mg PO Q6H PRN #16 tablet 02/08/22 Scopolamine Patch [Transderm-Scop] 1 each TOP Q3D PRN #7 patch 08/28/23 - Allergies Allergies/Adverse Reactions: Allergies Allergy/AdvReac Type Severity Reaction Status Date / Time Sulfa (Sulfonamide Allergy Hives Verified 08/28/23 14:24 Antibiotics) dexamethasone AdvReac Anxiety Verified 08/28/23 14:24 eszopiclone [From Lunesta] AdvReac Anxiety Verified 08/28/23 14:24 propranolol AdvReac Anxiety Verified 08/28/23 14:24 quetiapine fumarate * AdvReac Anxiety Verified 08/28/23 14:24 [From Seroquel] topiramate [From Topamax] AdvReac Anxiety Verified 08/28/23 14:24 - Social History Does the pt smoke?: No Smoking Status: Never smoker Does the pt drink ETOH?: No Does the pt have substance abuse?: No - Immunizations Immunizations are current?: Yes Immunizations: TDAP >10years/unknown - POLST Patient has POLST: Yes PD ED PE NORMAL - Vitals Vital signs reviewed: Yes - General General: Alert and oriented X 3, No acute distress - HEENT HEENT: Atraumatic, PERRL, EOMI, Ears normal (normal except a small amount of dark blood in the R ear canal, dried. ), Moist mucous membranes, Pharynx benign - Neck Neck: Supple, no meningeal sign - Cardiac Cardiac: RRR, Strong equal pulses - Respiratory Respiratory: No respiratory distress, Clear bilaterally - Abdomen Abdomen: Soft, Non tender, Non distended - Derm Derm: Warm and dry - Extremities Extremities: No edema - Neuro Neuro: Alert and oriented X 3, distribution agent 2-12 intact, No motor deficit, No sensory deficit, Normal speech, Other (no nystagmus, normal finger to nose. normal gait. NIHSS 0 ) Eye Opening: Spontaneous Motor: Obeys Commands Verbal: Oriented GCS Score: 15 - Psych Psych: Normal mood, Normal affect Results - Vitals Vitals: Vital Signs - 24 hr 08/28/23 08/28/23 14:14 16:31 Temperature 36.4 C L Heart Rate 82 73 Respiratory 18 16 Rate Blood Pressure 150/83 H 154/73 H O2 Saturation 97 96 Oxygen O2 Source Room air - EKG (time done) 1510 EKG releavant findings:: EKG personally interpreted by author of this note. Relevant findings are: Rate: Rate (enter#) (70) Rhythm: NSR [place]: Normal Intervals: Normal [place] QRS: Normal Ischemia: Normal ST segments, Q waves (III, aVF) - Labs Labs: Laboratory Tests 08/28/23 08/28/23 14:41 15:07 WBC 5.4 RBC 4.81 Hgb 14.2 Hct 43.8 MCV 91.1 MCH 29.5 MCHC 32.4 RDW 13.5 Plt Count 333 MPV 9.8 Neut # (Auto) 2.4 Lymph # (Auto) 2.3 [place] # (Auto) 0.5 Eos # (Auto) 0.1 Baso # (Auto) 0.1 Absolute Nucleated RBC 0.00 Nucleated RBC % 0.0 Sodium 144 Potassium 3.5 Chloride 109 Carbon Dioxide 28 Anion Gap 7.0 BUN 14 Creatinine 0.5 L Estimated GFR (MDRD) 121 Glucose 119 H Calcium 10.0 Total Bilirubin 0.3 AST 19 ALT 18 Alkaline Phosphatase 37 L Total Protein 7.0 Albumin 4.3 Globulin 2.7 Albumin/Globulin Ratio 1.6 Lipase < 10 L - Rads (name of study) brain MRI Relevant Findings:: Final report received, See rad report PD Medical Decision Making - ED course Complexity details: reviewed results, re-evaluated patient, considered differential, d/w patient ED course: 73-year-old female with episodes of dizziness, vertigo over the past 6 weeks. Unclear etiology. Her brain MRI does not show any acute abnormalities. No evidence of stroke. No tumors visible. Laboratory testing is likewise unremarkable. She does feel better after Ativan and droperidol. She is able to ambulate with a steady gait without any assistive devices. Does not have any abnormal cerebellar findings on examination here. Recommend that she follow-up with ENT and her neurologist. We did discuss scopolamine patch to see if this will help her dizziness, we will trial her on this. No focal neurological deficits. Patient counseled regarding signs and symptoms for which I believe and urgent re-evaluation would be necessary. Patient with good understanding of and agreement to plan and is comfortable going home at this time This document was made in part using voice recognition software. While efforts are made to proofread this document, sound alike and grammatical errors may occur. Departure - Departure Disposition: 01 Home, Self Care Clinical Impression: Vertigo, Dizziness Condition: Good Instructions: ED Dizziness UKO, ED Vertigo Unspecified Follow-Up: Shannon Orosco ARNP [Primary Care Provider] - [facility] [Provider Group] Prescriptions: Scopolamine Patch [Transderm-Scop] 1 each TOP Q3D PRN #7 patch PRN Reason: Dizziness Comments: Your brain MRI does not show any acute abnormalities today. Your laboratory testing does not show any acute abnormalities either. It is recommended you follow-up with your doctor for further care. They may want to refer you to an ENT for further evaluation. In addition you are neurologist may be able to help with your dizziness as well. We will trial you on scopolamine. This was sent to [facility] in [place]. Forms: PCP List Discharge Date/Time: 08/28/23 17:36 NIHSS - Time Time: 15:00 - Level of Consciousness Level of consciousness: (0) Alert, Keenly responsive LOC Questions: (0) Answers both Q's correct LOC Commands: (0) Performs both correctly - Gaze Best Gaze: (0) Normal - Visual Visual: (0) No loss - Facial Palsy Facial Palsy: (0) Normal, symmetrical movement - Motor Arms (both separate) Motor Arm (right): (0) No drift Motor Arm (left): (0) No drift - Motor Legs (both separate) Motor Leg (right): (0) No drift Motor Leg (left): (0) No drift - Limb Ataxia Limb Ataxia: (0) Absent - Sensory Sensory: (0) Normal - Best Language Best Language: (0) No aphasia - Dysarthria Dysarthria: (0) Normal - Extinction and Inattention (formally neg Extinction and inattention: (0) No abnormality - Total Score/Results Total Score/Result: 0
[2023-08-28] MEDS: LORazepam 2 MG/ML VIAL IVP STA ×2 (15:19→15:50)
[2023-08-28 15:34] LABS: ALBUMIN 4.3 g/dL (3.2-5.5); ALBUMIN/GLOBULIN RATIO 1.6 (1.0-2.2); ALKALINE PHOSPHATASE 37 IU/L (42-121); ALT ALANINE AMINOTRANSFERASE 18 IU/L (10-60); AST ASPARTATE AMINOTRANSFERASE 19 IU/L (10-42); BILIRUBIN,TOTAL 0.3 mg/dL (0.2-1.0); BUN - BLOOD UREA NITROGEN 14 mg/dL (6-20); CARBON DIOXIDE - CO2 28 mmol/L (21-32); CHLORIDE 109 mmol/L (101-111); CREATININE 0.5 mg/dL (0.6-1.3); GFR - MDRD 121 (>89); GLUCOSE 119 mg/dL (74-104); POTASSIUM 3.5 mmol/L (3.5-4.5); SODIUM 144 mmol/L (135-145)
[2023-08-28 15:36] LABS: LIPASE < 10 U/L (11-82)
--- NOTE | 2023-08-28 16:31 | MRI Report ---
PROCEDURE: MRI brain without contrast INDICATIONS: vertigo, off balance x 6 weeks TECHNIQUE: Multiplanar multisequential MR images of the brain were obtained without contrast COMPARISON: None FINDINGS: CSF Spaces: Basal cisterns are patent. No extra-axial fluid collections. Ventricles are normal in size and shape. Brain: No intracranial masses or hemorrhage. Resendiz/white matter interface is normal. Brainstem appe ars normal. Diffusion-weighted images shows no evidence of acute infarct. Normal intravascular flow voids are present. Skull and face: Calvarium has normal marrow signal. Orbits appear normal. Sinuses: Sinuses and mastoids are clear. IMPRESSION: Atrophy and multifocal white matter chronic ischemic change without acute infarct, hemorrhage or mass lesion Reviewed by: Jordin Walters MD on 08/28/2023 3:29 PM [facility] Approved by: Jordin Walters MD on 08/28/2023 3:29 PM [facility] Station ID: [id number]
[2023-08-28 16:33] VITALS: BP 154/73; O2SAT 96
[2023-08-28] MEDS: DROPERIDOL 5 MG/2 ML VIAL IVP STA (16:58)
== END 2023-08-28 17:36 | disposition home or self-care (01) ==
LOC: ED 14:08
DX: R42 Dizziness and giddiness (principal); I10 Essential (primary) hypertension
CPT/HCPCS: 36415; 70551; 80053; 83690; 85025; 93005; 96374; 96375; 96376; 99284; J2060

== ENCOUNTER 2023-11-18 07:12 | Outpatient (CLI) | payer MEDICARE, OTHER ==
[2023-11-18 14:56] LABS: BASOPHILS # (AUTO) 0.1 10^3/uL (0.0-0.1); BASOPHILS % (AUTO) 0.9 %; EOSINOPHILS # (AUTO) 0.2 10^3/uL (0.0-0.7); EOSINOPHILS % (AUTO) 3.9 %; HCT - HEMATOCRIT 46.1 % (37.0-47.0); HGB - HEMOGLOBIN 14.4 g/dL (12.0-16.0); LYMPHOCYTES % (AUTO) 35.8 %; MEAN CORPUSCULAR HEMOGLOBIN 29.8 pg (27.0-31.0); MEAN CORPUSCULAR HGB CONC 31.2 g/dL (32.0-36.0); MEAN CORPUSCULAR VOLUME 95.4 fL (81.0-99.0); MEAN PLATELET VOLUME 10.3 fL (7.9-10.8); MONOCYTES # (AUTO) 0.5 10^3/uL (0.0-1.0); MONOCYTES % (AUTO) 8.8 %; NEUTROPHILS # (AUTO) 2.8 10^3/uL (1.5-6.6); NEUTROPHILS % (AUTO) 50.4 %; PLT - PLATELET COUNT 331 10^3/uL (130-450); RED BLOOD COUNT 4.83 10^6/uL (4.20-5.40); RED CELL DISTRIBUTION WIDTH 13.9 % (12.0-15.0); WHITE BLOOD COUNT 5.6 x10^3/uL (4.8-10.8)
[2023-11-18 15:43] LABS: ALBUMIN 4.4 g/dL (3.2-5.5); ALBUMIN/GLOBULIN RATIO 1.5 (1.0-2.2); ALKALINE PHOSPHATASE 42 IU/L (42-121); ALT ALANINE AMINOTRANSFERASE 17 IU/L (10-60); AST ASPARTATE AMINOTRANSFERASE 22 IU/L (10-42); BILIRUBIN,TOTAL 0.4 mg/dL (0.2-1.0); BUN - BLOOD UREA NITROGEN 17 mg/dL (6-20); CALCIUM 9.9 mg/dL (8.5-10.3); CARBON DIOXIDE - CO2 29 mmol/L (21-32); CHLORIDE 106 mmol/L (101-111); CHOLESTEROL 211 mg/dL; CREATININE 0.6 mg/dL (0.6-1.3); GFR - MDRD 98 (>89); GLUCOSE 91 mg/dL (74-104); HDL CHOLESTEROL 70 mg/dL; LDL CHOLESTEROL,CALCULATED 112 mg/dL; LDL/HDL RATIO 1.6 (<4.4); POTASSIUM 3.9 mmol/L (3.5-4.5); SODIUM 142 mmol/L (135-145); TOTAL PROTEIN 7.3 g/dL (6.4-8.9); TRIGLYCERIDES 145 mg/dL (48-352); VLDL CHOLESTEROL 29 mg/dL
[2023-11-18 15:52] LABS: THYROID STIMULATING HORMONE 2.16 uIU/mL (0.34-5.60)
== END 2023-11-18 07:13 | disposition home or self-care (01) ==
LOC: LAB.S 07:12
PROVIDERS: ATTEND Registered Nurse
DX: Z13.228 Encounter for screening for other metabolic disorders (principal); Z13.220 Encounter for screening for lipoid disorders; Z13.29 Encounter for screening for other suspected endocrine disorder; Z13.0 Encounter for screening for diseases of the blood and blood-forming organs and certain disorders involving the immune mechanism; I10 Essential (primary) hypertension
CPT/HCPCS: 36415; 80053; 80061; 83721; 84443; 85025